=== PATIENT | female | born 1995 | race Caucasian/White ===

== ENCOUNTER 2018-03-02 13:43 | Emergency (ER) | payer OTHER, MEDICAID, SELFPAY ==
--- NOTE | 2018-03-02 13:44 | ED.SOB ---
HPI - SOB/Dyspnea <JERRY Vanegas - Last Filed: 03/02/18 22:05> General Chief Complaint: Shortness of Breath/Dyspnea Stated Complaint: SOB Time Seen by Provider: 03/02/18 13:44 History of Present Illness 22-year-old female here for complaint of having chest pain and feeling of shortness of breath over the past several hours. She said she had the pain that started earlier this morning at about 830. She denies any trauma to the chest area. She denies any fevers or chills. No recent cough. She denies any stressors to the discomfort or the shortness of breath. She does state that she has worked a little more strenuously at work this week. She denies any abdominal pain. No nausea or vomiting. She denies any other concerns or complaints at this time. MD Complaint: chest pain Related Data Previous Rx's Medication Instructions Recorded nitrofurantoin monohyd/m-cryst 100 mg PO Q12H 7 Days cap 03/02/18 Allergies Allergy/AdvReac Type Severity Reaction Status Date / Time hydrogen peroxide Allergy Unknown hives Verified 03/02/18 13:50 [HYDROGEN PEROXIDE] Review of Systems <JERRY Vanegas - Last Filed: 03/02/18 22:05> Constitutional Denies chills, Denies fatigue, Denies fever(s), Denies lethargy and Denies weakness Eyes Denies change in vision, Denies eye discharge, Denies irritation and Denies loss of vision ENT Ears, Nose, Mouth, and Throat: Denies change in voice, Denies neck pain and Denies sore throat Cardiovascular Reports chest pain and Reports dyspnea Respiratory Reports dyspnea Gastrointestinal Gastrointestinal: Denies abdominal pain, Denies change in bowel habits, Denies diarrhea, Denies nausea and Denies vomiting Genitourinary Denies hematuria, Denies flank pain, Denies urinary incontinence and Denies urinary urgency Musculoskeletal Denies neck pain Integumentary/Breasts Denies pruritus, Denies erythema, Denies rash and Denies wounds Neurologic Denies confusion, Denies loss of vision and Denies weakness Psychiatric Denies anxiety, Denies confusion, Denies depression, Denies homicidal ideation and Denies suicidal ideation Endocrine Denies fatigue and Denies flushing Exam <JERRY Vanegas - Last Filed: 03/02/18 22:05> Initial Vital Signs Initial Vital Signs: Vital Signs Temperature 97.8 F 03/02/18 13:50 Pulse Rate 96 H 03/02/18 13:50 Respiratory Rate 16 03/02/18 13:50 Blood Pressure 134/87 H 03/02/18 13:50 Pulse Oximetry 99 03/02/18 13:50 Const General: cooperative and well developed Nutritional Appearance: well nourished Orientation: alert, awake, oriented x3 and not confused HENLA Mouth: oral mucosae normal and moist mucous membranes Eyes Conjunctivae: conjunctivae normal Sclera: sclerae normal Pupils: PERRL EOM: EOM intact bilaterally Chest Chest: normal inspection of the chest Resp Effort & Inspection: normal respiratory effort, able to speak in complete sentences, no respiratory distress and no use of accessory muscles Auscultation: clear to auscultation bilaterally, no rales, no rhonchi and no wheezes Cardio Rate: regular rate Rhythm: regular rhythm Heart Sounds: no click, no gallops, no murmurs and no rubs GI Inspection: non-distended Palpation: soft, no hepatosplenomegaly, No guarding, No pulsatile mass and No tender Auscultation: normal bowel sounds General: CVA tenderness Skin General: no rashes or lesions noted, No jaundice and No petechiae <Anderson Ibarra DO - Last Filed: 03/03/18 08:04> Initial Vital Signs Initial Vital Signs: Vital Signs Temperature 97.8 F 03/02/18 13:50 Pulse Rate 96 H 03/02/18 13:50 Respiratory Rate 16 03/02/18 13:50 Blood Pressure 134/87 H 03/02/18 13:50 Pulse Oximetry 99 03/02/18 13:50 Course <JERRY Vanegas - Last Filed: 03/02/18 22:05> Orders Ordered: Discontinued Medications Sodium Chloride (Normal Saline 0.9%) 1,000 mls @ 1,000 mls/hr IV BOLUS ONE Stop: 03/02/18 16:14 Last Infusion: 03/02/18 16:46 Dose: 0 mls/hr Admin: 03/02/18 15:24 Dose: 1,000 mls/hr Vital Signs - 8 hr 03/02/18 14:34 03/02/18 16:28 03/02/18 17:51 Pulse Rate 77 79 74 Respiratory Rate 16 19 15 Blood Pressure Blood Pressure [Left Arm] 113/79 114/77 115/71 Pulse Oximetry 98 100 99 03/02/18 18:21 Pulse Rate 78 Respiratory Rate 16 Blood Pressure 116/76 Blood Pressure [Left Arm] Pulse Oximetry 100 <Anderson Ibarra DO - Last Filed: 03/03/18 08:04> Orders Ordered: Discontinued Medications Sodium Chloride (Normal Saline 0.9%) 1,000 mls @ 1,000 mls/hr IV BOLUS ONE Stop: 03/02/18 16:14 Last Infusion: 03/02/18 16:46 Dose: 0 mls/hr Admin: 03/02/18 15:24 Dose: 1,000 mls/hr Vital Signs - 8 hr 03/02/18 14:34 03/02/18 16:28 03/02/18 17:51 Pulse Rate 77 79 74 Respiratory Rate 16 19 15 Blood Pressure Blood Pressure [Left Arm] 113/79 114/77 115/71 Pulse Oximetry 98 100 99 03/02/18 18:21 Pulse Rate 78 Respiratory Rate 16 Blood Pressure 116/76 Blood Pressure [Left Arm] Pulse Oximetry 100 MDM - SOB/Dyspnea <JERRY Vanegas - Last Filed: 03/02/18 22:05> Lab Data Result diagrams: 03/02/18 14:31 03/02/18 14:31 Lab Results 03/02/18 03/02/18 03/02/18 Range/Units 14:31 14:31 14:55 WBC 10.3 (4.5-11.0) X10^3/uL RBC 4.52 (4.0-5.2) X10^6/uL Hgb 13.8 (12.0-16.0) g/dL Hct 40.6 (36-46) % MCV 89.8 (80-100) fL MCH 30.4 (26-34) PG MCHC 33.9 (30-36) % RDW 13.5 (11.6-14.8) % Plt Count 251 (150-400) X10^3/uL Neut % (Auto) 58.7 (50-75) % Lymph % (Auto) 32.6 (25-40) % [place] % (Auto) 5.9 (3-14) % Eos % (Auto) 2.0 (2-4) % Baso % (Auto) 0.8 (0-2) % Neut # (Auto) 6100 H (9884-7761) /uL Sodium 142 (137-145) mmol/L Potassium 3.6 (3.4-5.1) mmol/L Chloride 102 (98-107) mmol/L Carbon Dioxide 25 (22-32) mmol/L BUN 13 (7-17) mg/dL Creatinine 0.70 (0.52-1.04) mg/dL Estimated GFR > 60.0 (>60) mL/min BUN/Creatinine Ratio 18.6 (6-22) Glucose 81 (70-100) mg/dL Calcium 9.4 (8.4-10.2) mg/dL Total Bilirubin 0.9 (0.2-1.3) mg/dL AST 26 (14-36) IU/L ALT 28 (9-52) IU/L Alkaline Phosphatase 96 (38-126) U/L Total Creatine Kinase 157 H 127 (30-135) U/L CK-MB (CK-2) 2.18 1.77 (<2.37) ng/mL CK-MB (CK-2) Rel Index 1.4 L 1.4 L (1.5-5.0) % Troponin I < 0.012 < 0.012 (0.01-0.034) ng/mL Total Protein 8.0 (6.3-8.2) g/dL Albumin 4.4 (3.5-5.0) g/dL Globulin 3.6 (1.7-4.1) g/dL Albumin/Globulin Ratio 1.2 (1.0-2.8) Urine Color Urine Appearance Urine pH (4.5-8.0) Ur Specific [place] (1.000-1.035) Urine Protein (Negative) Urine Glucose (UA) (Normal) g/dL Urine Ketones (NEGATIVE) Urine Occult Blood (Negative) Urine Nitrate (Negative) Urine Bilirubin (NEGATIVE) Urine Ictotest (Negative) Urine Urobilinogen (0.2) E.U./dL Ur Leukocyte Esterase (NEGATIVE) Urine RBC (0-5/HPF) Urine WBC (0-5/HPF) Ur Squamous Epith Cells Urine Bacteria (None) Ur Culture Indicated? Micro UA Comment 03/02/18 03/02/18 Range/Units 15:17 15:17 WBC (4.5-11.0) X10^3/uL RBC (4.0-5.2) X10^6/uL Hgb (12.0-16.0) g/dL Hct (36-46) % MCV (80-100) fL MCH (26-34) PG MCHC (30-36) % RDW (11.6-14.8) % Plt Count (150-400) X10^3/uL Neut % (Auto) (50-75) % Lymph % (Auto) (25-40) % [place] % (Auto) (3-14) % Eos % (Auto) (2-4) % Baso % (Auto) (0-2) % Neut # (Auto) (2600-8791) /uL Sodium (137-145) mmol/L Potassium (3.4-5.1) mmol/L Chloride (98-107) mmol/L Carbon Dioxide (22-32) mmol/L BUN (7-17) mg/dL Creatinine (0.52-1.04) mg/dL Estimated GFR (>60) mL/min BUN/Creatinine Ratio (6-22) Glucose (70-100) mg/dL Calcium (8.4-10.2) mg/dL Total Bilirubin (0.2-1.3) mg/dL AST (14-36) IU/L ALT (9-52) IU/L Alkaline Phosphatase (38-126) U/L Total Creatine Kinase (30-135) U/L CK-MB (CK-2) (<2.37) ng/mL CK-MB (CK-2) Rel Index (1.5-5.0) % Troponin I (0.01-0.034) ng/mL Total Protein (6.3-8.2) g/dL Albumin (3.5-5.0) g/dL Globulin (1.7-4.1) g/dL Albumin/Globulin Ratio (1.0-2.8) Urine Color Red Urine Appearance Other Urine pH 6.5 (4.5-8.0) Ur Specific [place] 1.025 (1.000-1.035) Urine Protein 3+ H (Negative) Urine Glucose (UA) Negative (Normal) g/dL Urine Ketones 2+ H (NEGATIVE) Urine Occult Blood 3+ H (Negative) Urine Nitrate Positive H (Negative) Urine Bilirubin 2+ H (NEGATIVE) Urine Ictotest Negative (Negative) Urine Urobilinogen 4.0 H (0.2) E.U./dL Ur Leukocyte Esterase 1+ H (NEGATIVE) Urine RBC >100/hpf H (0-5/HPF) Urine WBC 5-10/hpf H (0-5/HPF) Ur Squamous Epith Cells 0-1 /hpf Urine Bacteria Occasional (0-1) (None) Ur Culture Indicated? Specimen cultured Micro UA Comment Not Reportable Imaging Data Chest x-ray: Radiologist's impression: PROCEDURE: XR CHEST 1V INDICATIONS: Chest pain TECHNIQUE: One view of the chest was acquired. COMPARISON: None. FINDINGS: Surgical changes and devices: None. Lungs and pleura: No pleural effusions or pneumothorax. Lungs are clear. Mediastinum: Mediastinal contours appear normal. Heart size is normal. Bones and chest wall: No suspicious bony lesions. Overlying soft tissues appear unremarkable. IMPRESSION: No acute cardiopulmonary disease. Dictated by: Isaias Msea M.D. on 03/02/2018 at 14:41 Approved by: Isaias Mesa M.D. on 03/02/2018 at 14:43 ECG Data Interpretation: EKG shows normal sinus rhythm with no ST elevation or depression. No ectopy. Ventricular rate of 81. Pr interval of 148. QRS duration is 74. QT of 363 MDM Narrative Medical decision making narrative: EKG shows normal sinus rhythm with no ST elevation or depression. Chest x-ray was obtained was unremarkable. CBC was negative for any acute findings. Chem panel shows CK elevation however negative CK ratio. Troponin was negative. Second set of troponin was also obtained was negative. Urinalysis indicates urinary tract infection. Otherwise laboratory results were unremarkable. Chest pain appears to be muscle skeletal and chest wall related. [id number] Tylenol and Motrin as needed for any discomfort. She is placed on Macrobid. Follow up with primary care provider next week for re-evaluation. For any worsening symptoms return to the emergency room. <Anderson Ibarra, - Last Filed: 03/03/18 08:04> Lab Data Lab Results 03/02/18 03/02/18 03/02/18 Range/Units 14:31 14:31 14:55 WBC 10.3 (4.5-11.0) X10^3/uL RBC 4.52 (4.0-5.2) X10^6/uL Hgb 13.8 (12.0-16.0) g/dL Hct 40.6 (36-46) % MCV 89.8 (80-100) fL MCH 30.4 (26-34) PG MCHC 33.9 (30-36) % RDW 13.5 (11.6-14.8) % Plt Count 251 (150-400) X10^3/uL Neut % (Auto) 58.7 (50-75) % Lymph % (Auto) 32.6 (25-40) % [place] % (Auto) 5.9 (3-14) % Eos % (Auto) 2.0 (2-4) % Baso % (Auto) 0.8 (0-2) % Neut # (Auto) 6100 H (7615-4985) /uL Sodium 142 (137-145) mmol/L Potassium 3.6 (3.4-5.1) mmol/L Chloride 102 (98-107) mmol/L Carbon Dioxide 25 (22-32) mmol/L BUN 13 (7-17) mg/dL Creatinine 0.70 (0.52-1.04) mg/dL Estimated GFR > 60.0 (>60) mL/min BUN/Creatinine Ratio 18.6 (6-22) Glucose 81 (70-100) mg/dL Calcium 9.4 (8.4-10.2) mg/dL Total Bilirubin 0.9 (0.2-1.3) mg/dL AST 26 (14-36) IU/L ALT 28 (9-52) IU/L Alkaline Phosphatase 96 (38-126) U/L Total Creatine Kinase 157 H 127 (30-135) U/L CK-MB (CK-2) 2.18 1.77 (<2.37) ng/mL CK-MB (CK-2) Rel Index 1.4 L 1.4 L (1.5-5.0) % Troponin I < 0.012 < 0.012 (0.01-0.034) ng/mL Total Protein 8.0 (6.3-8.2) g/dL Albumin 4.4 (3.5-5.0) g/dL Globulin 3.6 (1.7-4.1) g/dL Albumin/Globulin Ratio 1.2 (1.0-2.8) Urine Color Urine Appearance Urine pH (4.5-8.0) Ur Specific [place] (1.000-1.035) Urine Protein (Negative) Urine Glucose (UA) (Normal) g/dL Urine Ketones (NEGATIVE) Urine Occult Blood (Negative) Urine Nitrate (Negative) Urine Bilirubin (NEGATIVE) Urine Ictotest (Negative) Urine Urobilinogen (0.2) E.U./dL Ur Leukocyte Esterase (NEGATIVE) Urine RBC (0-5/HPF) Urine WBC (0-5/HPF) Ur Squamous Epith Cells Urine Bacteria (None) Ur Culture Indicated? Micro UA Comment 03/02/18 03/02/18 Range/Units 15:17 15:17 WBC (4.5-11.0) X10^3/uL RBC (4.0-5.2) X10^6/uL Hgb (12.0-16.0) g/dL Hct (36-46) % MCV (80-100) fL MCH (26-34) PG MCHC (30-36) % RDW (11.6-14.8) % Plt Count (150-400) X10^3/uL Neut % (Auto) (50-75) % Lymph % (Auto) (25-40) % [place] % (Auto) (3-14) % Eos % (Auto) (2-4) % Baso % (Auto) (0-2) % Neut # (Auto) (3525-0950) /uL Sodium (137-145) mmol/L Potassium (3.4-5.1) mmol/L Chloride (98-107) mmol/L Carbon Dioxide (22-32) mmol/L BUN (7-17) mg/dL Creatinine (0.52-1.04) mg/dL Estimated GFR (>60) mL/min BUN/Creatinine Ratio (6-22) Glucose (70-100) mg/dL Calcium (8.4-10.2) mg/dL Total Bilirubin (0.2-1.3) mg/dL AST (14-36) IU/L ALT (9-52) IU/L Alkaline Phosphatase (38-126) U/L Total Creatine Kinase (30-135) U/L CK-MB (CK-2) (<2.37) ng/mL CK-MB (CK-2) Rel Index (1.5-5.0) % Troponin I (0.01-0.034) ng/mL Total Protein (6.3-8.2) g/dL Albumin (3.5-5.0) g/dL Globulin (1.7-4.1) g/dL Albumin/Globulin Ratio (1.0-2.8) Urine Color Red Urine Appearance Other Urine pH 6.5 (4.5-8.0) Ur Specific [place] 1.025 (1.000-1.035) Urine Protein 3+ H (Negative) Urine Glucose (UA) Negative (Normal) g/dL Urine Ketones 2+ H (NEGATIVE) Urine Occult Blood 3+ H (Negative) Urine Nitrate Positive H (Negative) Urine Bilirubin 2+ H (NEGATIVE) Urine Ictotest Negative (Negative) Urine Urobilinogen 4.0 H (0.2) E.U./dL Ur Leukocyte Esterase 1+ H (NEGATIVE) Urine RBC >100/hpf H (0-5/HPF) Urine WBC 5-10/hpf H (0-5/HPF) Ur Squamous Epith Cells 0-1 /hpf Urine Bacteria Occasional (0-1) (None) Ur Culture Indicated? Specimen cultured Micro UA Comment Not Reportable Discharge Plan Departure Patient Disposition: Home, Self-Care Clinical Impression: Chest pain, UTI (urinary tract infection) Discharge Date/Time: 03/02/18 18:22 Interventions: ED Discharge Assessment Last Done: 03/02/18 18:21 Instructions: DI for Chest Pain Activity Restrictions/Additional Instructions: 0 blood work was obtained today and was unremarkable. EKG was normal. Chest x-ray was normal. Chest discomfort appears to be chest wall pain. Use [id number] Tylenol or Motrin as needed for any discomfort. Follow up with her primary care provider next week. If continued issues recommend further evaluation such as echo cardiogram and stress test. Urinalysis indicates urinary tract infection you have been placed on antibiotic use as directed. Plenty of fluids and rest. For any worsening symptoms return to the emergency room. Prescriptions: New nitrofurantoin monohyd/m-cryst 100 mg capsule 100 mg PO Q12H 7 Days RF: 0 Referrals: [facility] [Provider Group] <Anderson Ibarra, DO - Last Filed: 03/03/18 08:04> Cosign ED Attending Linda Attestation: I was available for consultation during this patient's emergency department encounter
[2018-03-02 13:50] VITALS: BP 134/87; PULSE 96; RESP 16; TEMP 36.6; O2SAT 99; BMI 32.1
--- NOTE | 2018-03-02 14:16 | DI.RAD.S_ITS ---
PROCEDURE: XR CHEST 1V INDICATIONS: Chest pain TECHNIQUE: One view of the chest was acquired. COMPARISON: None. FINDINGS: Surgical changes and devices: None. Lungs and pleura: No pleural effusions or pneumothorax. Lungs are clear. Mediastinum: Mediastinal contours appear normal. Heart size is normal. Bones and chest wall: No suspicious bony lesions. Overlying soft tissues appear unremarkable. IMPRESSION: No acute cardiopulmonary disease. Dictated by: Isaias Mesa M.D. on 03/02/2018 at 14:41 Approved by: Isaias Mesa M.D. on 03/02/2018 at 14:43
[2018-03-02 14:34] VITALS: BP 113/79; PULSE 77; RESP 16; O2SAT 98
[2018-03-02 14:38] LABS: Add Manual Diff / Slide Review NO; Basophils Percent Auto 0.8 % (0-2); Hematocrit 40.6 % (36-46); Hemoglobin 13.8 g/dL (12.0-16.0); Lymphocytes Percent Auto 32.6 % (25-40); Mean Corpuscular HGB Conc 33.9 % (30-36); Mean Corpuscular Hemoglobin 30.4 PG (26-34); Mean Corpuscular Volume 89.8 fL (80-100); Monocytes Percent Auto 5.9 % (3-14); Neutrophils Absolute Auto 6100 /uL (3000-5900); Neutrophils Percent Auto 58.7 % (50-75); Platelet Count 251 X10^3/uL (150-400); Red Blood Cell Count 4.52 X10^6/uL (4.0-5.2); Red Cell Distribution Width 13.5 % (11.6-14.8); White Blood Cell Count 10.3 X10^3/uL (4.5-11.0)
[2018-03-02 14:50] LABS: Alanine Aminotransferase 28 IU/L (9-52); Albumin 4.4 g/dL (3.5-5.0); Albumin Globulin Ratio 1.2 (1.0-2.8); Alkaline Phosphatase 96 U/L (38-126); Aspartate Aminotransferase 26 IU/L (14-36); BUN Creatinine Ratio 18.6 (6-22); Bilirubin Total 0.9 mg/dL (0.2-1.3); Blood Urea Nitrogen 13 mg/dL (7-17); Calcium 9.4 mg/dL (8.4-10.2); Carbon Dioxide 25 mmol/L (22-32); Chloride 102 mmol/L (98-107); Creatine Kinase 157 U/L (30-135); Estimated Glomerular Filt Rate > 60.0 mL/min (>60); Globulin 3.6 g/dL (1.7-4.1); Glucose 81 mg/dL (70-100); HEMOLYSIS < 15 (0-50); Potassium 3.6 mmol/L (3.4-5.1); Sodium 142 mmol/L (137-145)
[2018-03-02 15:04] LABS: Troponin I < 0.012 ng/mL (0.01-0.034)
[2018-03-02 15:07] LABS: CKMB % Relative Index 1.4 % (1.5-5.0); Creatine Kinase MB 2.18 ng/mL (<2.37)
[2018-03-02] MEDS: SODIUM CHLORIDE 0.9% 1,000 ML 1000 ML IV (15:24)
[2018-03-02 15:36] LABS: Bilirubin Urine UA 2+ (NEGATIVE); Color Urine UA RED; Glucose Urine UA NEGATIVE (Normal); Ketones Urine UA 2+ (NEGATIVE); Leukocyte Esterase Urine UA 1+ (NEGATIVE); Nitrite Urine UA POSITIVE (Negative); Occult Blood Urine UA 3+ (Negative); Protein Urine UA 3+ (Negative); Specific Gravity Urine UA 1.025 (1.000-1.035); pH Urine UA 6.5 (4.5-8.0)
[2018-03-02 15:49] LABS: Appearance Urine UA OTHER; RBC Urine >100/HPF (0-5/HPF); WBC Urine 5-10/HPF (0-5/HPF)
[2018-03-02 15:50] LABS: Bacteria Urine Occasional (0-1); Culture Indicated Urine Specimen Cultured; Squamous Epithelial Cell Urine 0-1 /HPF
[2018-03-02 15:53] LABS: Ictotest Urine Negative (Negative)
[2018-03-02 16:28] VITALS: BP 114/77; PULSE 79; RESP 19; O2SAT 100
[2018-03-02 17:12] LABS: Creatine Kinase 127 U/L (30-135)
[2018-03-02 17:27] LABS: CKMB % Relative Index 1.4 % (1.5-5.0); Creatine Kinase MB 1.77 ng/mL (<2.37)
[2018-03-02 17:31] LABS: Troponin I < 0.012 ng/mL (0.01-0.034)
[2018-03-02 17:51] VITALS: BP 115/71; PULSE 74; RESP 15; O2SAT 99
[2018-03-02 18:21] VITALS: BP 116/76; PULSE 78; RESP 16; O2SAT 100
== END 2018-03-02 18:22 | disposition home or self-care (01) ==
PROVIDERS: Emergency Provider Nurse Practitioner Family
DX: N39.0 Urinary tract infection, site not specified (principal); R07.9 Chest pain, unspecified
CPT/HCPCS: 36591; 71045; 80053; 81001; 81025; 82550; 82553; 84484; 85025; 87086; 93005; 93010; 96360; 99283; 99285

== ENCOUNTER 2018-03-04 14:09 | Emergency (ER) | payer OTHER, MEDICAID, SELFPAY ==
[2018-03-04 14:19] VITALS: BP 117/81; PULSE 70; RESP 16; TEMP 36.4; O2SAT 99; BMI 32.1
[2018-03-04 14:36] LABS: Bacteria Urine None Seen
[2018-03-04 14:48] LABS: Bilirubin Urine UA NEGATIVE (NEGATIVE); Glucose Urine UA NEGATIVE (Normal); Ketones Urine UA TRACE (NEGATIVE); Leukocyte Esterase Urine UA NEGATIVE (NEGATIVE); Nitrite Urine UA Negative (Negative); Occult Blood Urine UA 3+ (Negative); Protein Urine UA 2+ (Negative); Specific Gravity Urine UA >=1.030 (1.000-1.035); Urobilinogen Urine UA 0.2 E.U./dL (0.2); pH Urine UA 5.5 (4.5-8.0)
[2018-03-04 14:50] LABS: Appearance Urine UA Cloudy; Color Urine UA Red; RBC Urine >100/HPF (0-5/HPF); WBC Urine 5-10/HPF (0-5/HPF)
[2018-03-04 14:51] LABS: Culture Indicated Urine Specimen Cultured
--- NOTE | 2018-03-04 16:29 | PC.NURSE ---
Patient incidently states that she stood up when showering and slammed the right side of her back into the tap just prior to the UTI symptoms started
[2018-03-04 16:49] VITALS: BP 127/85; PULSE 57; RESP 16; TEMP 36.4; O2SAT 99
--- NOTE | 2018-03-04 16:52 | ED_ITS ---
HPI - Female Genitourinary <Arcelia Avitia PA-C - Last Filed: 03/04/18 22:03> General Chief complaint: Urogenital-Female Stated complaint: SHARP ABD AND BACK PAIN RT SIDE Time Seen by Provider: 03/04/18 16:45 Source: patient Mode of arrival: ambulatory Limitations: no limitations History of Present Illness HPI Narrative: This 22-year-old female returns today due to right lower back and flank pain along with hematuria. She states that she has a very physical job and also hit her low back on the right side on a faucet on and has had pain since then. She states that that pain seems to be worse with movement and she thought it was just sore muscles. It was going on when she was seen here on Monday for dyspnea. She states that today however, she has had worsening flank pain and noticed gross blood in her urine. She states that she has chronic frequency and urgency, and has not noted any changes there. She has not had dysuria. She has had chills and sweats today but no fever. She has had nausea today but tolerating fluids without problem. She does note some decreased appetite. She has not had vomiting. She denies any other new trauma. She denies any rash. No history of kidney stones. She has an IUD in place and states she has a little bit of spotting and discharge but nothing acutely changed and no STD concerns. She states that yesterday the pain was more like period cramps and today it is more constant but worse at times she states that she does not have any new chest discomfort or dyspnea today and does not feel like there are any acute changes aside from the hematuria and worsening pain in her side. She does note some chronic intermittent back pain which she relates to having a very physical job as well as a 1-year-old. She states that they really do not seem to be any exacerbating or alleviating features for pain aside from perhaps movement. She had a negative test here 2 days ago Related Data Previous Rx's Medication Instructions Recorded nitrofurantoin monohyd/m-cryst 100 mg PO Q12H 7 Days cap 03/02/18 ibuprofen 800 mg PO TID PRN #20 tab 03/04/18 levofloxacin [Levaquin] 500 mg PO DAILY 7 Days tab 03/04/18 Allergies Allergy/AdvReac Type Severity Reaction Status Date / Time hydrogen peroxide Allergy Unknown hives Verified 03/02/18 13:50 [HYDROGEN PEROXIDE] Review of Systems <Arcelia Avitia PA-C - Last Filed: 03/04/18 22:03> Review of Systems All systems reviewed & are unremarkable except as noted in HPI and below Exam <Arcelia Avitia PA-C - Last Filed: 03/04/18 22:03> Narrative Exam Narrative: GENERAL APPEARANCE: Patient sitting comfortably, in no distress. LUNGS: Clear to auscultation bilaterally. HEART: Rate and rhythm regular without murmur, normal S1 and S2, no S3 or S4. ABDOMEN: Soft, NT, ND, +BS x 4 quadrants. Minimal right CVAT, none on the left. No palpable masses MUSCULOSKELETAL: No tenderness over the lumbosacral spine. She has mild tenderness over the right inferior lumbar musculature at the lateral scapular line area. She has normal trunk range of motion but is able to elicit some tenderness with trunk rotation DERM: No exanthem Initial Vital Signs Initial Vital Signs: Vital Signs Temperature 97.5 F L 03/04/18 14:19 Pulse Rate 70 03/04/18 14:19 Respiratory Rate 16 03/04/18 14:19 Blood Pressure 117/81 H 03/04/18 14:19 Pulse Oximetry 99 03/04/18 14:19 <Anderson Ibarra DO - Last Filed: 03/06/18 07:16> Initial Vital Signs Initial Vital Signs: Vital Signs Temperature 97.5 F L 03/04/18 14:19 Pulse Rate 70 03/04/18 14:19 Respiratory Rate 16 03/04/18 14:19 Blood Pressure 117/81 H 03/04/18 14:19 Pulse Oximetry 99 03/04/18 14:19 Course <ALIZE Carver Last Filed: 03/04/18 22:03> Hospital Course: Patient has improved after Zofran during her stay here. She was sleeping comfortably. She tolerated food and fluids without problem. We discussed that there may be a kidney infection here but she also has a component of musculoskeletal pain due to chronic back strain and the contusion that she had a few days ago, and she agrees with this. She was given a dose of antibiotic tonight, along with Zofran and ibuprofen to take home, and agrees to follow up with her PCP in 2-3 days for recheck. Explained the importance of this as culture should be back by then Orders Ordered: Discontinued Medications Ibuprofen (Ibuprofen 800mg Prepack) 1 bottle MISC SEEINSTR ONE Stop: 03/04/18 18:56 Last Admin: 03/04/18 19:21 Dose: 1 bottle Levofloxacin (Levaquin) 500 mg PO NOW ONE Stop: 03/04/18 17:08 Last Admin: 03/04/18 17:28 Dose: 500 mg Ondansetron HCl (Zofran Odt) 4 mg PO NOW ONE Stop: 03/04/18 17:08 Last Admin: 03/04/18 17:28 Dose: 4 mg Ondansetron HCl (Zofran Odt Prepack) 1 bottle MISC SEEINSTR ONE Stop: 03/04/18 18:56 Last Admin: 03/04/18 19:21 Dose: 1 bottle Vital Signs - 8 hr 03/04/18 14:19 03/04/18 16:49 03/04/18 18:17 Temperature 97.5 F L 97.6 F 97.6 F Pulse Rate 70 57 L 95 H Respiratory Rate 16 16 16 Blood Pressure 117/81 H Blood Pressure [Left Arm] 127/85 H 121/80 H Pulse Oximetry 99 99 99 <Anderson Ibarra, - Last Filed: 03/06/18 07:16> Orders Ordered: Discontinued Medications Ibuprofen (Ibuprofen 800mg Prepack) 1 bottle MISC SEEINSTR ONE Stop: 03/04/18 18:56 Last Admin: 03/04/18 19:21 Dose: 1 bottle Levofloxacin (Levaquin) 500 mg PO NOW ONE Stop: 03/04/18 17:08 Last Admin: 03/04/18 17:28 Dose: 500 mg Ondansetron HCl (Zofran Odt) 4 mg PO NOW ONE Stop: 03/04/18 17:08 Last Admin: 03/04/18 17:28 Dose: 4 mg Ondansetron HCl (Zofran Odt Prepack) 1 bottle MISC SEEINSTR ONE Stop: 03/04/18 18:56 Last Admin: 03/04/18 19:21 Dose: 1 bottle Vital Signs - 8 hr 03/04/18 14:19 03/04/18 16:49 03/04/18 18:17 Temperature 97.5 F L 97.6 F 97.6 F Pulse Rate 70 57 L 95 H Respiratory Rate 16 16 16 Blood Pressure 117/81 H Blood Pressure [Left Arm] 127/85 H 121/80 H Pulse Oximetry 99 99 99 MDM - Female Genitourinary <Arcelia Avitia PA-C - Last Filed: 03/04/18 22:03> Lab Data Lab Results 03/04/18 Range/Units 14:28 Urine Color Red Urine Appearance Cloudy Urine pH 5.5 (4.5-8.0) Ur Specific [place] >=1.030 H (1.000-1.035) Urine Protein 2+ H (Negative) Urine Glucose (UA) Negative (Normal) g/dL Urine Ketones Trace H (NEGATIVE) Urine Occult Blood 3+ H (Negative) Urine Nitrate Negative (Negative) Urine Bilirubin Negative (NEGATIVE) Urine Urobilinogen 0.2 (0.2) E.U./dL Ur Leukocyte Esterase Negative (NEGATIVE) Urine RBC >100/hpf H (0-5/HPF) Urine WBC 5-10/hpf H (0-5/HPF) Urine Bacteria None seen (None) Ur Culture Indicated? Specimen cultured Micro UA Comment <Anderson Ibarra DO - Last Filed: 03/06/18 07:16> Lab Data Lab Results 03/04/18 Range/Units 14:28 Urine Color Red Urine Appearance Cloudy Urine pH 5.5 (4.5-8.0) Ur Specific [place] >=1.030 H (1.000-1.035) Urine Protein 2+ H (Negative) Urine Glucose (UA) Negative (Normal) g/dL Urine Ketones Trace H (NEGATIVE) Urine Occult Blood 3+ H (Negative) Urine Nitrate Negative (Negative) Urine Bilirubin Negative (NEGATIVE) Urine Urobilinogen 0.2 (0.2) E.U./dL Ur Leukocyte Esterase Negative (NEGATIVE) Urine RBC >100/hpf H (0-5/HPF) Urine WBC 5-10/hpf H (0-5/HPF) Urine Bacteria None seen (None) Ur Culture Indicated? Specimen cultured Micro UA Comment Discharge Plan Departure Patient Disposition: Home, Self-Care Clinical Impression: Pyelonephritis, Lumbar strain Discharge Date/Time: 03/04/18 19:30 Interventions: ED Discharge Assessment Last Done: 03/04/18 19:29 Instructions: DI for Kidney Infection Activity Restrictions/Additional Instructions: You should return if you have any acutely worsening symptoms. Otherwise, you can take the anti nausea medicine as you needed to night, and also I have given you 800 mg ibuprofen to start every 8 hr for pain and inflammation. You can greens picker prescriptions at the pharmacy tomorrow as you do not need your 2nd dose of antibiotic until tomorrow afternoon or early evening. As we talked about, you may have a kidney infection causing the blood in your urine, but this is not clear until the cultures are returned, so we are treating you. You should follow up with your PCP in 2-3 days for recheck. Part of your pain also seems to be caused by hitting your low back on the faucet as well as some chronic strain. Prescriptions: New ibuprofen 800 mg tablet 800 mg PO TID PRN (Reason: pain) Qty: 20 RF: 0 levofloxacin [Levaquin] 500 mg tablet 500 mg PO DAILY 7 Days RF: 0 No Action nitrofurantoin monohyd/m-cryst 100 mg capsule 100 mg PO Q12H 7 Days RF: 0 Referrals: Renée Sánchez MD [Non-Staff] - <Anderson Ibarra DO - Last Filed: 03/06/18 07:16> Cosign ED Attending Cosihsanature Attestation: I was available for consultation during this patient's emergency department encounter
[2018-03-04] MEDS: levoFLOXacin 500 MG TABLET PO (17:28)
[2018-03-04] MEDS: ONDANSETRON 4 MG ODT PO (17:28)
[2018-03-04 18:17] VITALS: BP 121/80; PULSE 95; RESP 16; TEMP 36.4; O2SAT 99
[2018-03-04] MEDS: ONDANSETRON 4 MG ODT PREPACK 1 BOTTLE MISC (19:21)
[2018-03-04] MEDS: IBUPROFEN 800MG PREPACK 1 BOTTLE MISC (19:21)
== END 2018-03-04 19:30 | disposition home or self-care (01) ==
PROVIDERS: Emergency Medicine; Emergency Provider Internal Medicine
DX: N12 Tubulo-interstitial nephritis, not specified as acute or chronic (principal); S39.012A Strain of muscle, fascia and tendon of lower back, initial encounter; W22.8XXA Striking against or struck by other objects, initial encounter
CPT/HCPCS: 81001; 87077; 87086; 99282; 99283

== ENCOUNTER 2018-11-20 20:32 | Emergency (ER) | payer SELFPAY ==
[2018-11-20 20:40] VITALS: BP 133/95; PULSE 84; RESP 15; TEMP 37; O2SAT 99; BMI 27.4
--- NOTE | 2018-11-20 20:43 | DI.RAD.S_ITS ---
PROCEDURE: XR KNEE RT 3V INDICATIONS: right knee pain TECHNIQUE: 3 views of the knee were acquired. COMPARISON: None. FINDINGS: Bones: No fractures or dislocations. No suspicious bony lesions. Soft tissues: No joint effusion. No suspicious soft tissue calcifications. IMPRESSION: No acute fracture. No osseous lesion. If clinical suspicion and/or symptoms persist, further assessment with repeat plainfilms, or advanced imaging (e.g., CT, MRI, or bone scan) may be helpful for further assessment. Dictated by: Christiano Barry M.D. on 11/20/2018 at 21:16 Approved by: Christiano Barry M.D. on 11/20/2018 at 21:16
--- NOTE | 2018-11-20 23:35 | PC.NURSE ---
Patient called in lobby to come back to room. Was seen exiting by admitting staff, no longer in lobby and not outside.
--- NOTE | 2018-11-20 23:56 | PC.NURSE ---
Patient came up to admitting and asked Did they call my name while I was in the bathroom? We undid the discharge and placed patient in room.
--- NOTE | 2018-11-20 23:58 | PC.NURSE ---
Chronic right knee pain for 2 years
[2018-11-21 00:10] VITALS: BP 131/79; PULSE 76; RESP 16; O2SAT 99
[2018-11-21 01:22] VITALS: BP 130/72; PULSE 72; RESP 16; O2SAT 99
--- NOTE | 2018-11-21 07:02 | ED_ITS ---
HPI - Extremity Injury (Lower) General Chief Complaint: Extremity Injury, Lower Stated Complaint: RT KNEE PAIN Time Seen by Provider: 11/20/18 23:08 Source: patient Mode of arrival: ambulatory Limitations: no limitations History of Present Illness HPI Narrative: 23F nonsmoker otherwise healthy presents with on going R knee pain in the absence of any injury. She's had problems with her knee for quite some time and thinks perhaps it was due to sitting cross legged for so long. She states her pain is worse with motion and improves with rest. She denies any significant swelling. MD complaint: knee injury Place: home Severity: moderate Relieving factors: nothing Exacerbating factors: weight bearing and movement Associated symptoms: able to partially bear weight Other symptoms: none Related Data Previous Rx's Medication Instructions Recorded ibuprofen 800 mg PO TID PRN #20 tab 03/04/18 ketorolac 10 mg PO Q6H PRN #14 tab 11/21/18 Allergies Allergy/AdvReac Type Severity Reaction Status Date / Time hydrogen peroxide Allergy Unknown hives Verified 11/20/18 20:40 [HYDROGEN PEROXIDE] Review of Systems Constitutional Denies chills, Denies fever(s), Denies lethargy and Denies weakness Eyes Denies change in vision, Denies eye discharge, Denies irritation and Denies loss of vision ENT Ears, Nose, Mouth, and Throat: Denies change in voice, Denies neck pain and Denies sore throat Cardiovascular Denies chest pain, Denies irregular heart rhythm, Denies lightheadedness, Denies palpitations, Denies dyspnea, Denies dyspnea on exertion and Denies orthopnea Respiratory Denies cough, Denies dyspnea, Denies dyspnea on exertion and Denies wheezing Gastrointestinal Gastrointestinal: Denies abdominal pain, Denies change in bowel habits, Denies diarrhea, Denies nausea and Denies vomiting Genitourinary Denies hematuria, Denies flank pain, Denies urinary incontinence and Denies urinary urgency Musculoskeletal Reports limited range of motion and Denies neck pain Integumentary/Breasts Denies pruritus, Denies erythema, Denies rash and Denies wounds Neurologic Denies confusion, Denies loss of vision and Denies weakness Psychiatric Denies anxiety, Denies confusion, Denies depression, Denies homicidal ideation and Denies suicidal ideation Endocrine Denies palpitations Hematologic/Lymphatic Denies easy bruising Allergic/Immunologic Denies wheezing [facility] Medical History Healthy female (Chronic) H/O wisdom tooth extraction (Resolved) Social History Smoking Status: Current every day smoker substance use type: marijuana Social History Smoking Status: Current every day smoker substance use type: marijuana Exam Narrative Exam Narrative: GEN: AOx3 and in mild distress EYES: Pupils are equal, round, and reactive to light and accommodation. Extraoccular muscles are intact bilaterally. There is no subconjunctival hemorrhage or exudate. CHEST: Lungs are clear to auscultation bilaterally and free of wheezes, rales, or rhonchi. Heart rate is regular rhythm, there are no murmurs, clicks, rubs, or gallops. There is no chest wall tenderness. ABD: Abdomen is soft and nontender. There is no guarding or rebound. Bowel sounds are normal in all 4 quadrants. There is no mass or organomegaly. EXT: Full painless ROM of all extremities with no loss of sensation or strength. No erythema or edema. No ligamentous instability. No effusion SKIN: Warm, pink, and dry. No erythema or rash Initial Vital Signs Initial Vital Signs: Vital Signs Temperature 98.6 F 11/20/18 20:40 Pulse Rate 84 11/20/18 20:40 Respiratory Rate 15 11/20/18 20:40 Blood Pressure 133/95 H 11/20/18 20:40 Pulse Oximetry 99 11/20/18 20:40 Course Orders Ordered: ED Orders 11/20/18 20:43 XR knee RT 3V Stat Vital Signs - 8 hr 11/21/18 00:10 11/21/18 01:22 Pulse Rate 76 72 Respiratory Rate 16 16 Blood Pressure 130/72 Blood Pressure [Right Arm] 131/79 Pulse Oximetry 99 99 MDM - Extremity Injury (Lower) Imaging Data Knee Xray: Attestation: I personally reviewed and interpreted this imaging study as follows: My impression: NAP Discharge Plan Departure Patient Disposition: Home Clinical Impression: Acute internal derangement of knee Qualifiers: Laterality: right Qualified Code(s): M23.91 - Unspecified internal derangement of right knee Discharge Date/Time: 11/21/18 01:22 Interventions: ED Discharge Assessment Last Done: 11/21/18 01:22 Instructions: DI for Knee Pain Activity Restrictions/Additional Instructions: *You have been diagnosed with [ acute on chronic Right knee pain ] *What to do: *Take medications as directed *Follow up with your primary care provider in 2-3 days, call for an appointment. Let them know you were seen in the Emergency Department and that we ask that you be seen in follow up *Return to ER if you should have any new, worsening or concerning symptoms Prescriptions: New ketorolac 10 mg tablet 10 mg PO Q6H PRN (Reason: pain) Qty: 14 RF: 0 No Action ibuprofen 800 mg tablet 800 mg PO TID PRN (Reason: pain) Qty: 20 RF: 0 Stand Alone Forms: Work Release Note
== END 2018-11-21 01:22 | disposition home or self-care (01) ==
PROVIDERS: Emergency Provider Emergency Medicine
DX: M23.91 Unspecified internal derangement of right knee (principal)
CPT/HCPCS: 73562; 99282; 99284

== ENCOUNTER → 2019-04-29 18:37 | Outpatient (CLI) | payer OTHER, MEDICAID, SELFPAY ==
--- NOTE | 2019-04-29 18:40 | DI.RAD.S_ITS ---
PROCEDURE: XR LUMBAR SPINE 2-3V INDICATIONS: midline low back pain lower throacic/upper lumbar TECHNIQUE: 3 views of the lumbar spine were acquired. COMPARISON: None. FINDINGS: Bones: Transitional anatomy with 6 [id number] vertebrae are present. There is normal bony alignment. No vertebral body compression fractures. No suspicious bony lesions. Soft tissues: Overlying bowel gas pattern is normal. No suspicious soft tissue calcifications. Intrauterine device projects over the mid pelvis IMPRESSION: No fracture. No acute osseous lesion. If symptoms and/or clinical suspicion for pathology persists, evaluation with MRI may be helpful for further assessment. Dictated by: Lia Campbell MD, PhD on 04/29/2019 at 19:26 Approved by: Lia Campbell MD, PhD on 04/29/2019 at 19:27
--- NOTE | 2019-04-29 18:40 | DI.RAD.S_ITS ---
PROCEDURE: XR THORACIC SPINE 3V INDICATIONS: midline low back pain lower throacic/upper lumbar TECHNIQUE: 3 views of the thoracic spine were acquired. COMPARISON: None. FINDINGS: Bones: No fractures or dislocations. No suspicious bony lesions. 12 pairs of ribs are noted, and appear intact where visualized. Soft tissues: No paravertebral stripe thickening. IMPRESSION: No fracture. No acute osseous lesion. If symptoms and/or clinical suspicion for pathology persists, evaluation with MRI may be helpful for further assessment. Dictated by: Lia Campbell MD, PhD on 04/29/2019 at 19:25 Approved by: Lia Campbell MD, PhD on 04/29/2019 at 19:26
== END ==
PROVIDERS: Visit Provider Physician Assistant
DX: M54.5 Low back pain (principal); M54.6 Pain in thoracic spine
CPT/HCPCS: 72072; 72100

== ENCOUNTER 2019-11-29 22:44 | Emergency (ER) | payer OTHER, MEDICAID, SELFPAY ==
[2019-11-29 22:54] VITALS: BP 182/104; PULSE 100; RESP 19; TEMP 36.4; O2SAT 98; BMI 40.3
--- NOTE | 2019-11-29 23:05 | DI.RAD.S_ITS ---
PROCEDURE: XR RIBS RT MIN 3V W CXR 1V INDICATIONS: felt pop on right after coughing with pain. TECHNIQUE: 3 views of the right ribs were acquired, along with a single view chest. COMPARISON: [facility], , XR CHEST 1V, 03/02/2018, 14:20. FINDINGS: Surgical changes and devices: None. Bones and chest wall: No displaced right rib fractures or dislocations. No suspicious bony lesions. Overlying soft tissues appear unremarkable. Lungs and pleura: No pleural effusions or pneumothorax. Lungs appear clear. Mediastinum: Mediastinal contours appear normal. Heart size is normal. IMPRESSION: No displaced rib fractures are appreciated. Dictated by: Johnny Velázquez M.D. on 11/30/2019 at 9:29 Approved by: Johnny Velázquez M.D. on 11/30/2019 at 9:30
[2019-11-30 00:15] VITALS: BP 114/70; PULSE 81; RESP 15; O2SAT 98
[2019-11-30] MEDS: CYCLOBENZAPRINE 10 MG TABLET PO (00:44)
[2019-11-30] MEDS: KETOROLAC 60 MG/2 ML VIAL 30 MG IM (00:44)
[2019-11-30 01:00] VITALS: BP 127/85; PULSE 84; O2SAT 97
--- NOTE | 2019-11-30 01:08 | ED_ITS ---
HPI - Back Pain/Injury General Chief Complaint: Back Pain/Injury Stated Complaint: HURT RIGHT SIDE Time Seen by Provider: 11/30/19 00:29 Source: patient Limitations: no limitations History of Present Illness HPI Narrative: HPI: The patient is a 24-year-old female states that she has had a cough for the past week prior to admission. She states that she was coughing today she felt something pop in her right anterior lower ribs and developed pain and discomfort in that area. She denies any other fall or injury. She denies sudden increased shortness of breath. She has had no palpitations or irregular heartbeat. She denied any significant shortness of breath. Her chest pain was sharp and uncomfortable. She has had a cough that has been dry and nonproductive of any sputum. She denies any headache. She has had no significant abdominal pain nausea vomiting diarrhea. She has had no urinary symptoms. She denies a history of diabetes mellitus myocardial infarction or asthma. She smokes cigarettes and has a smoker's cough. She drinks alcohol and occasionally smokes marijuana. Related Data Previous Rx's Medication Instructions Recorded ibuprofen 800 mg PO TID PRN #20 tab 03/04/18 cyclobenzaprine 10 mg PO TID PRN #15 tab 11/30/19 naproxen [Naprosyn] 500 mg PO BID PRN #14 tab 11/30/19 Allergies Allergy/AdvReac Type Severity Reaction Status Date / Time hydrogen peroxide Allergy Unknown hives Verified 04/29/19 18:04 [HYDROGEN PEROXIDE] Review of Systems Review of Systems Narrative: Her review of systems were negative except for those mentioned in the history of present illness. Patient History Medical History Healthy female (Chronic) Surgical History H/O wisdom tooth extraction (Resolved) Social History Smoking Status: Current every day smoker substance use type: marijuana Smoking Status: Current every day smoker tobacco type: cigarettes and vaping alcohol intake frequency: a few times a week Alcohol type: hard liquor Substance Use Type: marijuana Exam Narrative Exam Narrative: PHYSICAL EXAM: CONSTITUTIONAL: Awake, Alert, Oriented, Coherent, Cooperative in NAD. Does not appear toxic or ill. HEAD: AT/NC EENT: PERRL, FROM of eyes, no discharge, No epistaxis or nasal drainage Oral mucosa is moist and pink, posterior pharynx is without erythema or exudate. NECK: Supple, no obvious JVD, Trachea is midline without stridor, SPINE: No gross deformity, no palpable tenderness of the cervical, thoracic, lumbar or sacral spine. No CVA tenderness. THORAX: Right lower chest is tender to palpation anterior without crepitus or subcutaneous air.. LUNGS: Clear with symmetrical breath sounds without respiratory distress HEART: Normal heart tones, regular rhythm and rate without murmur. ABDOMEN: Soft, non-tender, EXTREMITIES: No edema, cyanosis, deformity or tenderness. SKIN: No rash, bruising, petechiae or purpura. NEURO: Awake, alert, oriented, conversive, cranial nerves II-XII are symmetrical and normal, moves all 4 extremities and is ambulatory Initial Vital Signs Initial Vital Signs: Vital Signs Temperature 97.6 F 11/29/19 22:54 Pulse Rate 100 H 11/29/19 22:54 Respiratory Rate 19 11/29/19 22:54 Blood Pressure 182/104 H 11/29/19 22:54 Pulse Oximetry 98 11/29/19 22:54 Course Course Course Narrative: 0108 reviewed with the patient's rib x-rays myself did not reveal any acute fracture or pathology. I did not appreciate any acute pneumothorax and a chest x-ray. The chest x-ray are is within normal limits except for 2 circular ring artifacts on the x-ray. The patient will be discharged home. Orders Ordered: ED Orders 11/29/19 23:05 XR ribs RT min 3V w CXR1V Stat Discontinued Medications Cyclobenzaprine HCl (Flexeril) 10 mg PO NOW ONE Stop: 11/30/19 00:35 Last Admin: 11/30/19 00:44 Dose: 10 mg Documented by: RALPH Ketorolac Tromethamine (Toradol) 30 mg IM NOW ONE Stop: 11/30/19 00:35 Last Admin: 11/30/19 00:44 Dose: 30 mg Documented by: RALPH Vital Signs Vital signs: Vital Signs - 8 hr 11/29/19 22:54 11/30/19 00:15 11/30/19 01:00 Temperature 97.6 F Pulse Rate 100 H 81 84 Respiratory Rate 19 15 Blood Pressure 182/104 H Blood Pressure [Left Arm] 114/70 127/85 Pulse Oximetry 98 98 97 Discharge Plan Departure Patient Disposition: Home Clinical Impression: Rib pain on right side, Right-sided chest wall pain Discharge Date/Time: 11/30/19 01:35 Instructions: DI for Atypical Chest Pain, DI for Costochondritis Activity Restrictions/Additional Instructions: 1. Follow-up with your family physician in and be rechecked in 48-72 hours. 2. The radiologist did not see any rib fractures. 3, take cyclobenzaprine 10 mg for muscle spasms pain and discomfort. 4. For pain and discomfort take Naprosyn 500 mg twice a day with your meals 14. 5. If you develop worsening pain or discomfort dizziness passing out or worsening shortness of breath you need to be re-evaluated in proceed to the nearest emergency department. Prescriptions: New naproxen [Naprosyn] 500 mg tablet 500 mg PO BID PRN (Reason: pain) Qty: 14 RF: 0 cyclobenzaprine 10 mg tablet 10 mg PO TID PRN (Reason: muscle spasm) Qty: 15 RF: 0 No Action ibuprofen 800 mg tablet 800 mg PO TID PRN (Reason: pain) Qty: 20 RF: 0 ED Sign-out Cosign ED Attending Cosignature Attestation: I was immediately available in the depart ment for consultation. This documentation has been reviewed and I agree with assessment and plan. Supervised by Chad Schmidt MD
== END 2019-11-30 01:35 | disposition home or self-care (01) ==
PROVIDERS: Emergency Provider Emergency Medicine
DX: R07.81 Pleurodynia (principal); R07.89 Other chest pain; R05 Cough
CPT/HCPCS: 36415; 71101; 96372; 99283; 99284; J1885

== ENCOUNTER 2019-12-30 15:23 | Emergency (ER) | payer OTHER, MEDICAID, SELFPAY ==
[2019-12-30 15:29] VITALS: BP 142/89; PULSE 82; RESP 18; TEMP 36.2; O2SAT 99
--- NOTE | 2019-12-30 22:20 | ED_ITS ---
HPI - Back Pain/Injury <JERRY Leahy - Last Filed: 12/30/19 22:36> General Chief Complaint: Upper Respiratory Symptoms Stated Complaint: Costocondritis, Painful Breathing Time Seen by Provider: 12/30/19 15:29 Source: patient Mode of arrival: Ambulatory Limitations: no limitations History of Present Illness HPI Narrative: This is a 24 year female, smoker, presents to ED with chief complain of right lateral rib pain which radiating to the anterior chest and posterior back for wound. Patient denies chest pain, breathing difficulty, nausea /vomiting, diaphoresis or trauma/falls. Patient reports was evaluated and diagnosed with costochondritis in 11/30/19 and discharged to home with Flexeril and Naprosyn which improved her symptoms. 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 Patient denies productive cough, fever, rash on chest/back and reports the pain is exactly at the same location, characteristic but worsening in severity. Patient had x-ray test done during last visit which showed negative findings. Patient reports had use last ibuprofen 2 days ago. Related Data Previous Rx's Medication Instructions Recorded ibuprofen 800 mg PO TID PRN #20 tab 03/04/18 cyclobenzaprine 10 mg PO TID PRN #15 tab 11/30/19 naproxen [Naprosyn] 500 mg PO BID PRN #14 tab 11/30/19 cyclobenzaprine 10 mg PO TID PRN #15 tab 12/30/19 naproxen 500 mg PO BID PRN #14 tab 12/30/19 Allergies Allergy/AdvReac Type Severity Reaction Status Date / Time hydrogen peroxide Allergy Unknown hives Verified 04/29/19 18:04 [HYDROGEN PEROXIDE] Review of Systems <JERRY Leahy - Last Filed: 12/30/19 22:36> Review of Systems Narrative: General: Denies fever, chills, fatigue, malaise, sweats. HEENT: Denies sinus pain, ear pain, sore throat, difficulty swallowing, dizziness. Respiratory: Denies dyspnea, cough, wheezing, hemoptysis, sputum. Cardiovascular: Denies chest pain, palpitations, orthopnea, edema. Gastrointestinal: Denies nausea, vomiting, abdominal pain, diarrhea, constipation, melena. : Denies dysuria, frequency, incontinence, hematuria, urinary retention. Musculoskeletal: See HPI Skin: Denies rash, skin lesions, or other. Neurologic: Denies weakness, headache, numbness, change in speech, confusion, seizures, incoordination. Psychiatric: No concerning psychosocial issues. 12-point review of systems is negative except for those stated above. Patient History <JERRY Leahy - Last Filed: 12/30/19 22:36> Medical History Healthy female (Chronic) Surgical History H/O wisdom tooth extraction (Resolved) Social History Smoking Status: Current every day smoker substance use type: marijuana Smoking Status: Current every day smoker tobacco type: cigarettes and vaping alcohol intake frequency: a few times a week Alcohol type: hard liquor Substance Use Type: marijuana Exam <JERRY Leahy - Last Filed: 12/30/19 22:36> Narrative Exam Narrative: GEN: Alert, oriented x 3, well appearing and nourished, and in no acute distress. Head: Normal cephalic, atraumatic. No scalp or temporal tenderness, palpable mass or rash. EYES: Pupils are equal, round, and reactive to light and accommodation. Extraocular muscles are intact bilaterally. There is no subconjunctival hemorrhage, exudate and sclera non-icteric. ENT: Hearing grossly intact. Nose without bleeding, purulent discharge. Mucous membrane moist, no mucosal lesion. Throat without erythema, tonsillar hypertrophy or exudate. Uvula in midline, airway patent. Neck: Trachea in midline. No JVD, non-tender without lymphadenopathy. No masses or thyroid megaly. Supple, non-tender and no meningeal signs. CARDIAC: Normal regular rate and rhythm without murmurs, gallops, or rubs. Focalized chest wall tenderness in lateral ribs . No peripheral edema, cyanosis or pallor. Capillary refill is less than 2 seconds. RESPIRATORY: Lungs are clear to auscultate bilaterally. No cough, wheezes, rales, or rhonchi. No stridor, respiratory distress, increase work of breathing, or accessary muscle used. ABD: Abdomen soft, nontender and non-distended. No guarding or rebound tenderness to palpate. Bowel sounds are normal in all 4 quadrants. There is no palpable masses or organomegaly. EXT: Full painless ROM of all extremities with no loss of sensation, strength, effusion or edema. SKIN: Warm, dry, normal color for patient. No erythema, lesions or rash over visible areas. BACK: Nontender without deformity or crepitance. No flank tenderness. NEUROLOGICAL: Alert and oriented to place, time and person. Sensation and motor function intact bilaterally. No facial droops, dysphasia. PSYCHIATRIC: Good judgement and reason, without hallucinations, abnormal affect or abnormal behaviors during the examination. Initial Vital Signs Initial Vital Signs: Vital Signs Temperature 97.1 F L 12/30/19 15:29 Pulse Rate 82 12/30/19 15:29 Respiratory Rate 18 12/30/19 15:29 Blood Pressure 142/89 H 12/30/19 15:29 Pulse Oximetry 99 12/30/19 15:29 <Radha Kim MD - Last Filed: 12/31/19 07:26> Initial Vital Signs Initial Vital Signs: Vital Signs Temperature 97.1 F L 12/30/19 15:29 Pulse Rate 82 12/30/19 15:29 Respiratory Rate 18 12/30/19 15:29 Blood Pressure 142/89 H 12/30/19 15:29 Pulse Oximetry 99 12/30/19 15:29 Scores <JERRY Leahy - Last Filed: 12/30/19 22:36> GCS [place] coma scale eye opening: Spontaneous [place] coma scale verbal response: Orientated [place] coma scale motor response: Obey commands [place] coma scale total score: 15 Course <JERRY Leahy - Last Filed: 12/30/19 22:36> Vital Signs Vital signs: Vital Signs - 8 hr 12/30/19 15:29 Temperature 97.1 F L Pulse Rate 82 Respiratory Rate 18 Blood Pressure 142/89 H Pulse Oximetry 99 <Radha Kim MD - Last Filed: 12/31/19 07:26> Vital Signs Vital signs: Vital Signs - 8 hr 12/30/19 15:29 Temperature 97.1 F L Pulse Rate 82 Respiratory Rate 18 Blood Pressure 142/89 H Pulse Oximetry 99 [facility] - Back Pain/Injury <JERRY Leahy - Last Filed: 12/30/19 22:36> Differential Diagnosis Differential diagnosis: Likely thoracic back pain and other (Costochondritis, atypical chest pain) Medical Records Attestation: I reviewed the patient's medical records. [facility] Narrative Medical decision making narrative: This is 24 year female who presents to ED with chief complain of focalized right lateral rib pain which at times radiates to anterior chest and posterior back which gets worse with movements, lifting, bending forwards. Patient states exact same characteristic of pain, location a month ago and diagnosed with costal chondritis which is now more severe after she over exerts herself with mowing the lawn last week. Physical exam is unremarkable. Given patient's symptoms is exactly seen from previous visit when she had negative chest x-ray and there is no recent injury or trauma, x-ray test was deferred. Patient discharged to home with Flexeril for muscle relaxant and naproxen for inflammation and pain management which worked well last time. Return precautions were discussed with patient and patient advised to rest and not exerting herself during with the acute pain. Patient verbalized understanding and agreement with the treatment plan. Discharge Plan Departure Patient Disposition: Home Clinical Impression: Acute costochondritis Discharge Date/Time: 12/30/19 16:40 Activity Restrictions/Additional Instructions: You have been diagnosed with [recurring costal chondritis. No trauma, fall, injury to affected rib and reported pain is very similar from the previous visit at the same location.]. What to do: *Take your medications as directed. Muscle relaxant and Naproxen have been prescribed and this medications have transmitted to [facility] in [place]. *Follow up with your primary care provider in 2-3 days, call for an appointment. [facility] Resource phone number has been provided to select the PCP. Let them know you were seen in the ED and that we asked you to be seen in follow up. Please avoid straining or overusing the affected muscle. *Return to ED if you have any new, worsening, or concerning symptoms, such as [worsening pain, different chest pain, breathing difficulty, unable to tolerate fluids, fever, productive cough or any acute concerns]. Prescriptions: New cyclobenzaprine 10 mg tablet 10 mg PO TID PRN (Reason: muscle spasm) Qty: 15 RF: 0 naproxen 500 mg tablet 500 mg PO BID PRN (Reason: pain) Qty: 14 RF: 0 No Action ibuprofen 800 mg tablet 800 mg PO TID PRN (Reason: pain) Qty: 20 RF: 0 naproxen [Naprosyn] 500 mg tablet 500 mg PO BID PRN (Reason: pain) Qty: 14 RF: 0 cyclobenzaprine 10 mg tablet 10 mg PO TID PRN (Reason: muscle spasm) Qty: 15 RF: 0 Referrals: [facility] [Outside] <Radha Kim MD - Last Filed: 12/31/19 07:26> [facility]: I was immediately available in the department for consultation throughout this patient's visit. I agree with documentation as above. Radha Kim MD
== END 2019-12-30 16:40 | disposition home or self-care (01) ==
PROVIDERS: Emergency Provider Nurse Practitioner Family
DX: M94.0 Chondrocostal junction syndrome [Tietze] (principal)
CPT/HCPCS: 99281

== ENCOUNTER 2020-01-11 15:33 | Emergency (ER) | payer OTHER, MEDICAID, SELFPAY ==
[2020-01-11 15:39] VITALS: BP 134/76; PULSE 120; RESP 15; TEMP 36.7; O2SAT 99; BMI 40.3
--- NOTE | 2020-01-11 17:37 | DI.RAD.S_ITS ---
PROCEDURE: XR CHEST 2V INDICATIONS: sob, wheezing TECHNIQUE: 2 views of the chest were acquired. COMPARISON: [facility], CR, XR RIBS RT MIN 3V W CXR 1V, 11/29/2019, 23:08. [facility], CR, XR CHEST 1V, 03/02/2018, 14:20. FINDINGS: Surgical changes and devices: None. Lungs and pleura: No focal pulmonary consolidation is appreciated. There is vague increased density at the left lung base that is not well characterized. No effusion or pneumothorax is identified. Mediastinum: Mediastinal contours are normal. Heart size is normal. Bones and chest wall: No suspicious bony abnormalities. Soft tissues appear unremarkable. IMPRESSION: Vague increased density at the left lung base probably represents normal pulmonary vascular structures. The possibility of a mild atelectasis or a developing pneumonia cannot be completely excluded. Please correlate clinically. Dictated by: Johnny Velázquez M.D. on 01/11/2020 at 16:59 Approved by: Johnny Velázquez M.D. on 01/11/2020 at 17:01
[2020-01-11 17:58] VITALS: PULSE 96; RESP 16; O2SAT 98
[2020-01-11] MEDS: ALBUTEROL HFA PREPACK 1 BOX MISC (17:58)
[2020-01-11 18:15] VITALS: BP 138/84; PULSE 98; RESP 16; O2SAT 98
[2020-01-11 19:00] VITALS: BP 138/71; PULSE 98; RESP 16; O2SAT 100
--- NOTE | 2020-01-11 19:16 | ED_ITS ---
HPI - Extremity Problem <MOSHE Burnette - Last Filed: 01/11/20 19:21> General Chief complaint: Extremity Problem,Nontraumatic Stated complaint: states costochondritis over a month Time Seen by Provider: 01/11/20 17:12 Source: patient Mode of arrival: Ambulatory Limitations: no limitations History of Present Illness HPI Narrative: The patient is a 24-year-old female current smoker with history of costochondritis who presents with a chief complaint of continue costochondritis. She states she has had this for months, is having trouble following up with primary care provider due to coronavirus. She states that she has pain on the right side of her ribs. She states that this has been going on, worsened by when she was mowing her lawn. She complains of chronic wheeze and has never tried an inhaler. She denies any productive cough, fevers nausea vomiting or diarrhea. She states that initially the cyclobenzaprine and and since that were given to her were helpful. However since she has run out and has been unable to get into her primary care provider. She states that the pain in her right chest is worse with deep breathing, musculoskeletal movements and pressure. Related Data Previous Rx's Medication Instructions Recorded ibuprofen 800 mg PO TID PRN #20 tab 03/04/18 cyclobenzaprine 10 mg PO TID PRN #15 tab 11/30/19 naproxen [Naprosyn] 500 mg PO BID PRN #14 tab 11/30/19 cyclobenzaprine 10 mg PO TID PRN #15 tab 12/30/19 naproxen 500 mg PO BID PRN #14 tab 12/30/19 prednisone 40 mg PO DAILY #10 tab 01/11/20 Allergies Allergy/AdvReac Type Severity Reaction Status Date / Time hydrogen peroxide Allergy Unknown hives Verified 01/11/20 15:39 [HYDROGEN PEROXIDE] Review of Systems <MOSHE Burnette - Last Filed: 01/11/20 19:21> Review of Systems Narrative: GENERAL: Denies chills, fatigue, malaise, fever, sweats. HEENT: Denies sinus pain, ear pain, sore throat, difficulty swallowing, dizziness. RESPIRATORY: See HPI CARDIOVASCULAR: Denies chest pain, palpitations, orthopnea, edema, GASTROINTESTINAL: Denies nausea, vomiting, abdominal pain, diarrhea, constipation, melena. : Denies dysuria, frequency, incontinence, hematuria, urinary retention. MUSCULOSKELETAL: See HPI SKIN: Denies rash, skin lesions, or other NEUROLOGIC: Denies weakness, headache, numbness, change in speech, confusion, seizures, incoordination. PSYCHIATRIC: No concerning psychosocial issues. 12 point review of systems is negative except for those stated above Patient History <MOSHE Burnette - Last Filed: 01/11/20 19:21> Social History Smoking Status: Current every day smoker substance use type: marijuana Smoking Status: Current every day smoker tobacco type: cigarettes and vaping alcohol intake frequency: a few times a week Alcohol type: hard liquor Substance Use Type: marijuana Exam <MATT Burnette - Last Filed: 01/11/20 19:21> Narrative Exam Narrative: GENERAL: This is a well-nourished, well-developed patient, in no acute distress HEAD: Atraumatic. Normocephalic. No temporal or scalp tenderness. EYES: Pupils equal round and reactive. Extraocular motions intact. No scleral icterus. No injection or drainage. ENT: Nose without bleeding, purulent drainage or septal hematoma. Throat without erythema, tonsillar hypertrophy or exudate. Uvula midline. Airway patent. NECK: Trachea midline. No JVD or lymphadenopathy. Supple, nontender, no meningeal signs. CARDIOVASCULAR: Regular rate and rhythm without murmurs, gallops, or rubs. RESPIRATORY: Clear to auscultation. Breath sounds equal bilaterally. No rales, or rhonchi. Pain to palpation right lower ribs. Diffuse expiratory wheeze bilaterally. Speaking full sentences. GASTROINTESTINAL: Abdomen soft, non-tender, nondistended. No hepato- splenomegaly, or palpable masses. No guarding. EXTREMITIES: No clubbing, cyanosis, or edema. No joint tenderness, effusion, or edema noted. BACK: Nontender without deformity or crepitance. No flank tenderness. NEURO: AOx3. SKIN: No rash or erythema on visible skin. No erythema ecchymosis rash laceration or abrasion right lower chest wall Initial Vital Signs Initial Vital Signs: Vital Signs Temperature 98.1 F 01/11/20 15:39 Pulse Rate 120 H 01/11/20 15:39 Respiratory Rate 15 01/11/20 15:39 Blood Pressure 134/76 01/11/20 15:39 Pulse Oximetry 99 01/11/20 15:39 <DO Khadijah Magallanes Last Filed: 01/11/20 19:28> Initial Vital Signs Initial Vital Signs: Vital Signs Temperature 98.1 F 01/11/20 15:39 Pulse Rate 120 H 01/11/20 15:39 Respiratory Rate 15 01/11/20 15:39 Blood Pressure 134/76 01/11/20 15:39 Pulse Oximetry 99 01/11/20 15:39 Course <MANE Burnette-BC - Last Filed: 01/11/20 19:21> Orders Ordered: ED Orders 01/11/20 17:37 XR chest 2V Stat RT Consult Eval and Treat NOW Discontinued Medications Albuterol (Ventolin Hfa Prepack) 1 box MIS SEEINSTR ONE Stop: 01/11/20 17:53 Last Admin: 01/11/20 17:58 Dose: 1 box Documented by: WILLIS Vital Signs Vital signs: Vital Signs - 8 hr 01/11/20 15:39 01/11/20 17:58 01/11/20 18:15 Temperature 98.1 F Pulse Rate 120 H 96 H 98 H Respiratory Rate 15 16 16 Blood Pressure 134/76 Blood Pressure [Left Arm] 138/84 Pulse Oximetry 99 98 98 01/11/20 19:00 Temperature Pulse Rate 98 H Respiratory Rate 16 Blood Pressure Blood Pressure [Left Arm] 138/71 Pulse Oximetry 100 <DO Khadijah Magallanes Last Filed: 01/11/20 19:28> Orders Ordered: ED Orders 01/11/20 17:37 XR chest 2V Stat RT Consult Eval and Treat NOW Discontinued Medications Albuterol (Ventolin Hfa Prepack) 1 box MISC SEEINSTR ONE Stop: 01/11/20 17:53 Last Admin: 01/11/20 17:58 Dose: 1 box Documented by: WILLIS Vital Signs Vital signs: Vital Signs - 8 hr 01/11/20 15:39 01/11/20 17:58 01/11/20 18:15 Temperature 98.1 F Pulse Rate 120 H 96 H 98 H Respiratory Rate 15 16 16 Blood Pressure 134/76 Blood Pressure [Left Arm] 138/84 Pulse Oximetry 99 98 98 01/11/20 19:00 Temperature Pulse Rate 98 H Respiratory Rate 16 Blood Pressure Blood Pressure [Left Arm] 138/71 Pulse Oximetry 100 MDM - Extremity (Nontraumatic) <MOSHE Burnette - Last Filed: 01/11/20 19:21> Imaging Data Chest x-ray: Radiologist's Impression: [address] [place] [id number] XRay Report Signed Patient: Joyce Car IMR#: [id number] : 1995Acct:[id number] Age/Sex: te of Service: 01/11/20 Loc: ED Accession Number: [id number] Procedure: XR chest 2V Ordering Provider: Sue Puga PROCEDURE: XR CHEST 2V INDICATIONS: sob, wheezing TECHNIQUE: 2 views of the chest were acquired. COMPARISON: [facility], CR, XR RIBS RT MIN 3V W CXR 1V, 11/29/2019, 23:08. [facility], CR, XR CHEST 1V, 03/02/2018, 14:20. FINDINGS: Surgical changes and devices: None. Lungs and pleura: No focal pulmonary consolidation is appreciated. There is vague increased density at the left lung base that is not well characterized. No effusion or pneumothorax is identified. Mediastinum: Mediastinal contours are normal. Heart size is normal. Bones and chest wall: No suspicious bony abnormalities. Soft tissues appear unremarkable. IMPRESSION: Vague increased density at the left lung base probably represents normal pulmonary vascular structures. The possibility of a mild atelectasis or a developing pneumonia cannot be completely excluded. Please correlate clinically. Dictated by: Johnny Velázquez M.D. on 01/11/2020 at 16:59 Approved by: Johnny Velázquez M.D. on 01/11/2020 at 17:01 MDM Narrative Medical decision making narrative: The patient is a 24-year-old female who presents with a chief complaint of continued right-sided chest wall pain with motion. Exam indicates musculoskeletal pain. She was given albuterol MDI with spacer which helped her wheezing. I discussed smoking cessation and not smoking marijuana several times a day with the patient. X-ray shows possible mild atelectasis or developing pneumonia, but the patient does not clinically have pneumonia, does not have a productive cough or fever. Thus I believe it is atelectasis. Did elect to do a course of steroids. Discussed at length the importance of following up with primary care provider come back to the emergency department for any acute concerns Discharge Plan Departure Patient Disposition: Home Clinical Impression: Acute chest wall pain, Wheezing Discharge Date/Time: 01/11/20 19:19 Instructions: How to Use a Metered-Dose Inhaler, DI for Costochondritis, DI for Shortness of Breath Activity Restrictions/Additional Instructions: Thank you for trusting us with your care today. Please follow-up with primary care provider next few days. I sent a prescription of prednisone to [facility]. Please start this tomorrow morning. Also please continue to use [id number] medications as needed and able ice packs. Please back to the emergency department for any acute concerns. Prescriptions: New prednisone 20 mg tablet 40 mg PO DAILY Qty: 10 RF: 0 No Action ibuprofen 800 mg tablet 800 mg PO TID PRN (Reason: pain) Qty: 20 RF: 0 naproxen [Naprosyn] 500 mg tablet 500 mg PO BID PRN (Reason: pain) Qty: 14 RF: 0 cyclobenzaprine 10 mg tablet 10 mg PO TID PRN (Reason: muscle spasm) Qty: 15 RF: 0 cyclobenzaprine 10 mg tablet 10 mg PO TID PRN (Reason: muscle spasm) Qty: 15 RF: 0 naproxen 500 mg tablet 500 mg PO BID PRN (Reason: pain) Qty: 14 RF: 0 Referrals: [facility] [Outside] <Anderson Ibarra, - Last Filed: 01/11/20 19:28> [facility] Dr Ibarra Co-Sign Statement: I was available for consultation during this patient's emergency department visit. This chart is signed by myself for administrative purposes only. I did not have direct contact with this patient during this visit. They were seen independently by the APC.
== END 2020-01-11 19:19 | disposition home or self-care (01) ==
PROVIDERS: Emergency Provider Nurse Practitioner Family
DX: R07.89 Other chest pain (principal); R06.2 Wheezing; M94.0 Chondrocostal junction syndrome [Tietze]
CPT/HCPCS: 71046; 94640; 99283

== ENCOUNTER 2020-04-11 11:38 | Emergency (ER) | payer OTHER, MEDICAID, SELFPAY ==
[2020-04-11] VITALS (8 sets, daily range): BP systolic 125–144; BP diastolic 77–91; PULSE 57–75; RESP 14–18; TEMP 36.4; O2SAT 97–100; BMI 39.4
--- NOTE | 2020-04-11 11:50 | DI.RAD.S_ITS ---
PROCEDURE: XR ACUTE ABDOMEN SERIES INDICATIONS: abd pain TECHNIQUE: One view chest and two views of the abdomen were acquired. COMPARISON: [facility], CR, XR CHEST 1V, 03/02/2018, 14:20. [facility], CR, XR LUMBAR SPINE 2-3V, 04/29/2019, 18:55. [facility], CR, XR CHEST 2V, 01/11/2020, 17:36. FINDINGS: Surgical changes and devices: An IUD is seen at its expected location. Chest: Lungs are clear. Heart size is normal. No pleural effusions. No pneumoperitoneum. Abdomen: Bowel gas pattern is normal. No suspicious calcifications. Visualized solid organ contours appear normal. Bones: No suspicious bony lesions. Mild levoconvex scoliotic curvature is noted. IMPRESSION: A nonobstructive bowel gas pattern is seen. As clinically appropriate, please consider a repeat plain film study or a dedicated CT of the abdomen and pelvis, if the patient's symptoms persist or worsen. Clear lungs. IUD noted. Dictated by: Rohith Goldstein M.D. on 04/11/2020 at 11:34 Approved by: Rohith Goldstein M.D. on 04/11/2020 at 11:35
[2020-04-11] MEDS: SODIUM CHLORIDE 0.9% 1,000 ML 1000 ML IV (12:00)
[2020-04-11] MEDS: PANTOPRAZOLE 40 MG VIAL IV (12:00)
[2020-04-11] MEDS: ONDANSETRON 4 MG/2 ML INJ IV (12:00)
[2020-04-11 12:09] LABS: Add Manual Diff / Slide Review NO; Basophils Absolute Auto 100 /uL (0-100); Basophils Percent Auto 0.9 % (0-2); Eosinophils Absolute Auto 600 /uL (0-450); Eosinophils Percent Auto 6.5 % (2-4); Hematocrit 38.4 % (36-46); Hemoglobin 13.1 g/dL (12.0-16.0); Lymphocytes Absolute Auto 1800 /uL (1100-4500); Lymphocytes Percent Auto 18.2 % (25-40); Mean Corpuscular HGB Conc 34.3 % (30-36); Mean Corpuscular Hemoglobin 31.5 PG (26-34); Mean Corpuscular Volume 91.8 fL (80-100); Monocytes Absolute Auto 600 /uL (0-900); Monocytes Percent Auto 5.6 % (3-14); Neutrophils Absolute Auto 6900 /uL (1500-7000); Neutrophils Percent Auto 68.8 % (50-75); Platelet Count 214 X10^3/uL (150-400); Red Blood Cell Count 4.18 X10^6/uL (4.0-5.2); Red Cell Distribution Width 12.7 % (11.6-14.8)
[2020-04-11 12:21] LABS: Alanine Aminotransferase 29 IU/L (<35); Albumin 4.1 g/dL (3.5-5.0); Albumin Globulin Ratio 1.3 (1.0-2.8); Alkaline Phosphatase 92 U/L (38-126); Amylase 74 U/L (30-110); Aspartate Aminotransferase 30 IU/L (14-36); BUN Creatinine Ratio 12.1 (6-22); Bilirubin Total 1.1 mg/dL (0.2-1.3); Blood Urea Nitrogen 8 mg/dL (7-17); Calcium 9.2 mg/dL (8.4-10.2); Carbon Dioxide 26 mmol/L (22-32); Chloride 106 mmol/L (98-107); Estimated Glomerular Filt Rate > 60.0 mL/min (>60); Globulin 3.2 g/dL (1.7-4.1); Glucose 129 mg/dL (70-100); HEMOLYSIS 26 (0-50); Lipase 88 U/L (23-300); Magnesium 1.8 mg/dL (1.6-2.3); Sodium 137 mmol/L (137-145); Total Protein 7.3 g/dL (6.3-8.2)
--- NOTE | 2020-04-11 12:26 | ED_ITS ---
HPI - Abdominal Pain <MOSHE Burnette - Last Filed: 04/11/20 15:00> General Chief Complaint: Abdominal Pain Stated Complaint: stomache pain x 4days, middle and right side Time Seen by Provider: 04/11/20 11:41 Source: patient Mode of arrival: Ambulatory Limitations: no limitations History of Present Illness HPI narrative: The patient is a 25-year-old female current smoker presents with a chief complaint of abdominal pain for the past 4 days. She states that this is not uncommon for her, that she has ?gas pain fairly frequently but this did not go way after 4 days so she came to the emergency department. She states her last bowel movement was earlier today approximately 2 hours ago and normal for her. She denies any fevers. She was nauseous once yesterday but otherwise no nausea or vomiting. She did any history of abdominal surgeries. She does have a history of costochondritis for which she takes ibuprofen. She states that she has taken doses of 1600 mg of ibuprofen, which she took this morning. She also stopped and had some Klein's on her way into the emergency department today. She has not taken anything at home to feel better other than Gas-X. She states that she occasionally takes 1600 mg of ibuprofen, usually takes 800. She denies any dysuria urgency or frequency, denies any possibility of . She states that the pain is relieved by ?juggling my abdomen as well as walking. She states it moves throughout her stomach. Related Data Previous Rx's Medication Instructions Recorded ibuprofen 800 mg PO TID PRN #20 tab 03/04/18 cyclobenzaprine 10 mg PO TID PRN #15 tab 11/30/19 naproxen [Naprosyn] 500 mg PO BID PRN #14 tab 11/30/19 cyclobenzaprine 10 mg PO TID PRN #15 tab 12/30/19 naproxen 500 mg PO BID PRN #14 tab 12/30/19 prednisone 40 mg PO DAILY #10 tab 01/11/20 pantoprazole [Protonix] 40 mg PO DAILY #14 tab 04/11/20 Allergies Allergy/AdvReac Type Severity Reaction Status Date / Time hydrogen peroxide Allergy Unknown hives Verified 01/11/20 15:39 [HYDROGEN PEROXIDE] Review of Systems <MOSHE Burnette - Last Filed: 04/11/20 15:00> Review of Systems Narrative: GENERAL: Denies chills, fatigue, malaise, fever, sweats. HEENT: Denies sinus pain, ear pain, sore throat, difficulty swallowing, dizziness. RESPIRATORY: Denies dyspnea, cough, wheezing, hemoptysis, sputum. CARDIOVASCULAR: Denies chest pain, palpitations, orthopnea, edema, GASTROINTESTINAL: See HPI : Denies dysuria, frequency, incontinence, hematuria, urinary retention. MUSCULOSKELETAL: denies weakness, joint pain, or bony pain SKIN: Denies rash, skin lesions, or other NEUROLOGIC: Denies weakness, headache, numbness, change in speech, confusion, seizures, incoordination. PSYCHIATRIC: No concerning psychosocial issues. 12 point review of systems is negative except for those stated above Patient History <MOSHE Burnette - Last Filed: 04/11/20 15:00> Medical History (Updated 04/11/20 @ 14:58 by MOSHE Burnette) Healthy female (Chronic) Surgical History H/O wisdom tooth extraction (Resolved) Social History Smoking Status: Current every day smoker substance use type: marijuana Smoking Status: Current every day smoker tobacco type: cigarettes and vaping alcohol intake frequency: a few times a week Alcohol type: hard liquor Substance Use Type: marijuana Exam <MOSHE Burnette - Last Filed: 04/11/20 15:00> Narrative Exam Narrative: GENERAL: This is a well-nourished, well-developed patient, no acute distress HEAD: Atraumatic. Normocephalic. No temporal or scalp tenderness. EYES: Pupils equal round and reactive. Extraocular motions intact. No scleral icterus. No injection or drainage. ENT: Nose without bleeding, purulent drainage or septal hematoma. Wearing a mask. Airway patent. NECK: Trachea midline. No JVD or lymphadenopathy. Supple, nontender, no meningeal signs. CARDIOVASCULAR: Regular rate and rhythm without murmurs, gallops, or rubs. RESPIRATORY: Clear to auscultation. Breath sounds equal bilaterally. No wheezes, rales, or rhonchi. No cough. No increased respiratory effort. No accessory muscle use GASTROINTESTINAL: Abdomen soft, diffusely tender to palpation, nondistended. No hepato-splenomegaly, or palpable masses. No guarding. Active bowel sounds all 4 quadrants. Negative Snyder sign. No pain at McBurney's point. EXTREMITIES: No clubbing, cyanosis, or edema. No joint tenderness, effusion, or edema noted. BACK: Nontender without deformity or crepitance. No flank tenderness. NEURO: AOx3. SKIN: No rash or erythema on visible skin Initial Vital Signs Initial Vital Signs: Vital Signs Temperature 97.6 F 04/11/20 12:02 Pulse Rate 71 04/11/20 12:02 Respiratory Rate 14 04/11/20 12:02 Blood Pressure 132/77 04/11/20 12:02 Pulse Oximetry 100 04/11/20 12:02 <Chad Schmidt MD - Last Filed: 04/12/20 19:19> Initial Vital Signs Initial Vital Signs: Vital Signs Temperature 97.6 F 04/11/20 12:02 Pulse Rate 71 04/11/20 12:02 Respiratory Rate 14 04/11/20 12:02 Blood Pressure 132/77 04/11/20 12:02 Pulse Oximetry 100 04/11/20 12:02 Scores <MOSHE Burnette - Last Filed: 04/11/20 15:00> GCS Elkins coma scale eye opening: Spontaneous Elkins coma scale verbal response: Orientated Conchis coma scale motor response: Obey commands Elkins coma scale total score: 15 Course <MOSHE Burnette - Last Filed: 04/11/20 15:00> Orders Ordered: Discontinued Medications Al Hydrox/Mg Hydrox/Simethicone 20 ml/ Lidocaine HCl 15 ml 0 ml PO NOW ONE Stop: 04/11/20 13:26 Last Admin: 04/11/20 14:28 Dose: 35 ml Documented by: MATTHEW Sodium Chloride (Normal Saline 0.9%) 1,000 mls @ 1,000 mls/hr IV BOLUS ONE Stop: 04/11/20 12:50 Last Infusion: 04/11/20 14:29 Dose: 0 mls/hr Documented by: Admin: 04/11/20 12:00 Dose: 1,000 mls/hr Documented by: MATTHEW Ondansetron HCl (Zofran) 4 mg IV NOW ONE Stop: 04/11/20 11:52 Last Admin: 04/11/20 12:00 Dose: 4 mg Documented by: MATTHEW Pantoprazole Sodium (Protonix) 40 mg IV NOW ONE Stop: 04/11/20 11:52 Last Admin: 04/11/20 12:00 Dose: 40 mg Documented by: MATTHEW Vital Signs Vital signs: Vital Signs - 8 hr 04/11/20 12:02 04/11/20 13:00 04/11/20 14:40 Temperature 97.6 F Pulse Rate 71 66 74 Respiratory Rate 14 17 15 Blood Pressure 132/77 127/85 144/87 H Pulse Oximetry 100 99 100 <Chad Schmidt MD - Last Filed: 04/12/20 19:19> Orders Ordered: Discontinued Medications Al Hydrox/Mg Hydrox/Simethicone 20 ml/ Lidocaine HCl 15 ml 0 ml PO NOW ONE Stop: 04/11/20 13:26 Last Admin: 04/11/20 14:28 Dose: 35 ml Documented by: MATTHEW Sodium Chloride (Normal Saline 0.9%) 1,000 mls @ 1,000 mls/hr IV BOLUS ONE Stop: 04/11/20 12:50 Last Infusion: 04/11/20 14:29 Dose: 0 mls/hr Documented by: Admin: 04/11/20 12:00 Dose: 1,000 mls/hr Documented by: MATTHEW Ondansetron HCl (Zofran) 4 mg IV NOW ONE Stop: 04/11/20 11:52 Last Admin: 04/11/20 12:00 Dose: 4 mg Documented by: MATTHEW Pantoprazole Sodium (Protonix) 40 mg IV NOW ONE Stop: 04/11/20 11:52 Last Admin: 04/11/20 12:00 Dose: 40 mg Documented by: MATTHEW Vital Signs Vital signs: Vital Signs - 8 hr 04/11/20 12:02 04/11/20 13:00 04/11/20 14:40 Temperature 97.6 F Pulse Rate 71 66 74 Respiratory Rate 14 17 15 Blood Pressure 132/77 127/85 144/87 H Pulse Oximetry 100 99 100 MDM - Abdominal Pain <MOSHE Burnette - Last Filed: 04/11/20 15:00> Lab Data Result diagrams: 04/11/20 11:59 04/11/20 11:59 Labs: Lab Results 04/11/20 04/11/20 Range/Units 11:59 11:59 WBC 10.0 (4.5-11.0) X10^3/uL RBC 4.18 (4.0-5.2) X10^6/uL Hgb 13.1 (12.0-16.0) g/dL Hct 38.4 (36-46) % MCV 91.8 (80-100) fL MCH 31.5 (26-34) PG MCHC 34.3 (30-36) % RDW 12.7 (11.6-14.8) % Plt Count 214 (150-400) X10^3/uL Neut % (Auto) 68.8 (50-75) % Lymph % (Auto) 18.2 L (25-40) % Smyth % (Auto) 5.6 (3-14) % Eos % (Auto) 6.5 H (2-4) % Baso % (Auto) 0.9 (0-2) % Neut # (Auto) 6900 (5553-3356) /uL Lymph # (Auto) 1800 (1064-1871) /uL Smyth # (Auto) 600 (0-900) /uL Eos # (Auto) 600 H (0-450) /uL Baso # (Auto) 100 (0-100) /uL Sodium 137 (137-145) mmol/L Potassium 4.0 (3.4-5.1) mmol/L Chloride 106 (98-107) mmol/L Carbon Dioxide 26 (22-32) mmol/L BUN 8 (7-17) mg/dL Creatinine 0.66 (0.52-1.04) mg/dL Estimated GFR > 60.0 (>60) mL/min BUN/Creatinine Ratio 12.1 (6-22) Glucose 129 H (70-100) mg/dL Calcium 9.2 (8.4-10.2) mg/dL Magnesium 1.8 (1.6-2.3) mg/dL Total Bilirubin 1.1 (0.2-1.3) mg/dL AST 30 (14-36) IU/L ALT 29 (<35) IU/L Alkaline Phosphatase 92 (38-126) U/L Total Protein 7.3 (6.3-8.2) g/dL Albumin 4.1 (3.5-5.0) g/dL Globulin 3.2 (1.7-4.1) g/dL Albumin/Globulin Ratio 1.3 (1.0-2.8) Amylase 74 (30-110) U/L Lipase 88 (23-300) U/L Point of care testing: Point of Care Testing Test Results Negative Urine Dip Bedside Urine Glucose Negative Bedside Urine Bilirubin - Negative Bedside Urine Ketone - Negative Urine Specific [place] 1.010 Bedside Urine Occult Blood - Negative Bedside Urine pH 6.0 Bedside Urine Protein - Negative Bedside Urine Urobilinogen - Negative Bedside Urine Nitrite - Negative Bedside Urine Leukocytes - Negative Esterase Imaging Data Abdominal x-ray: Radiologist's Impression: [address] [place] [id number] XRay Report Signed Patient: Joyce Car [facility]#: [id number] : 1995Acct:[id number] Age/Sex: te of Service: 04/11/20 Loc: ED Accession Number: [id number] Procedure: XR acute abdomen series Ordering Provider: Sue Puga PROCEDURE: XR ACUTE ABDOMEN SERIES INDICATIONS: abd pain TECHNIQUE: One view chest and two views of the abdomen were acquired. COMPARISON: [facility], CR, XR CHEST 1V, 03/02/2018, 14:20. [facility], CR, XR LUMBAR SPINE 2-3V, 04/29/2019, 18:55. [facility], CR, XR CHEST 2V, 0, 17:36. FINDINGS: Surgical changes and devices: An IUD is seen at its expected location. Chest: Lungs are clear. Heart size is normal. No pleural effusions. No pneumoperitoneum. Abdomen: Bowel gas pattern is normal. No suspicious calcifications. Visualized solid organ contours appear normal. Bones: No suspicious bony lesions. Mild levoconvex scoliotic curvature is noted. IMPRESSION: A nonobstructive bowel gas pattern is seen. As clinically appropriate, please consider a repeat plain film study or a dedicated CT of the abdomen and pelvis, if the patient's symptoms persist or worsen. Clear lungs. IUD noted. Dictated by: Katya MoralesD. on 04/11/2020 at 11:34 Approved by: Rohith Goldstein M.D. on 04/11/2020 at 11:35 [facility] Narrative Medical decision making narrative: The patient is a 25-year-old female who presents with a chief complaint of 4-5 days of abdominal pain. It got worse today after she took a 16 200 mg dose of ibuprofen, which I discussed at length with her is too much and can cause stomach irritation. She did not have an acute abdomen on exam, and feels much improved after the above-stated therapies. I discussed at length not taking large ibuprofen doses, watching as sudden food, use of Protonix etcetera. Discussed at length return precautions such as abdominal pain with fever etcetera. Upon re-evaluation, the patient has no pain. Discussed a light diet, she continues no pain no abdominal palpation. Patient has no questions or concerns upon discharge and states understanding of return precautions as well as follow-up care. I discussed at length with the patient that she has primary care provider, gave her contact information [facility] health resource recovery engineer. She has been hemodynamically stable stable and afebrile throughout her stay in the emergency department. <Chad Schmidt MD - Last Filed: 04/12/20 19:19> Lab Data Labs: Lab Results 04/11/20 04/11/20 Range/Units 11:59 11:59 WBC 10.0 (4.5-11.0) X10^3/uL RBC 4.18 (4.0-5.2) X10^6/uL Hgb 13.1 (12.0-16.0) g/dL Hct 38.4 (36-46) % MCV 91.8 (80-100) fL MCH 31.5 (26-34) PG MCHC 34.3 (30-36) % RDW 12.7 (11.6-14.8) % Plt Count 214 (150-400) X10^3/uL Neut % (Auto) 68.8 (50-75) % Lymph % (Auto) 18.2 L (25-40) % Smyth % (Auto) 5.6 (3-14) % Eos % (Auto) 6.5 H (2-4) % Baso % (Auto) 0.9 (0-2) % Neut # (Auto) 6900 (0397-6402) /uL Lymph # (Auto) 1800 (9720-1125) /uL Smyth # (Auto) 600 (0-900) /uL Eos # (Auto) 600 H (0-450) /uL Baso # (Auto) 100 (0-100) /uL Sodium 137 (137-145) mmol/L Potassium 4.0 (3.4-5.1) mmol/L Chloride 106 (98-107) mmol/L Carbon Dioxide 26 (22-32) mmol/L BUN 8 (7-17) mg/dL Creatinine 0.66 (0.52-1.04) mg/dL Estimated GFR > 60.0 (>60) mL/min BUN/Creatinine Ratio 12.1 (6-22) Glucose 129 H (70-100) mg/dL Calcium 9.2 (8.4-10.2) mg/dL Magnesium 1.8 (1.6-2.3) mg/dL Total Bilirubin 1.1 (0.2-1.3) mg/dL AST 30 (14-36) IU/L ALT 29 (<35) IU/L Alkaline Phosphatase 92 (38-126) U/L Total Protein 7.3 (6.3-8.2) g/dL Albumin 4.1 (3.5-5.0) g/dL Globulin 3.2 (1.7-4.1) g/dL Albumin/Globulin Ratio 1.3 (1.0-2.8) Amylase 74 (30-110) U/L Lipase 88 (23-300) U/L Point of care testing: Point of Care Testing Test Results Negative Urine Dip Bedside Urine Glucose Negative Bedside Urine Bilirubin - Negative Bedside Urine Ketone - Negative Urine Specific [place] 1.010 Bedside Urine Occult Blood - Negative Bedside Urine pH 6.0 Bedside Urine Protein - Negative Bedside Urine Urobilinogen - Negative Bedside Urine Nitrite - Negative Bedside Urine Leukocytes - Negative Esterase Discharge Plan Departure Patient Disposition: Home Clinical Impression: Abdominal pain Qualifiers: Abdominal location: generalized Qualified Code(s): R10.84 - Generalized abdominal pain Discharge Date/Time: 04/11/20 15:14 Instructions: DI for Abdominal Pain-Adult, GERD Diet Activity Restrictions/Additional Instructions: Thank you for trusting us with your care today. As discussed, your labwork x-rays and evaluation came back well. I sent a prescription of the Protonix that helped to feel better to [facility] In the meantime, please avoid ibuprofen naproxen or other NSAIDs. Please avoid spicy foods fried foods fatty foods as this can all upset her stomach. I suggest a light diet over the next few days. Please follow-up with primary care provider in the next few days. I have given you contact information [facility] health resource recovery engineer. They can help you identify primary care provider. With come back to the emergency department for any acute concerns such as abdominal pain with fever, inability keep down food or fluids or any acute concerns Prescriptions: New pantoprazole [Protonix] 40 mg tablet,delayed release (DR/EC) 40 mg PO DAILY Qty: 14 RF: 0 No Action ibuprofen 800 mg tablet 800 mg PO TID PRN (Reason: pain) Qty: 20 RF: 0 naproxen [Naprosyn] 500 mg tablet 500 mg PO BID PRN (Reason: pain) Qty: 14 RF: 0 cyclobenzaprine 10 mg tablet 10 mg PO TID PRN (Reason: muscle spasm) Qty: 15 RF: 0 cyclobenzaprine 10 mg tablet 10 mg PO TID PRN (Reason: muscle spasm) Qty: 15 RF: 0 naproxen 500 mg tablet 500 mg PO BID PRN (Reason: pain) Qty: 14 RF: 0 prednisone 20 mg tablet 40 mg PO DAILY Qty: 10 RF: 0 Referrals: [facility] [Outside]
[2020-04-11] MEDS: MAG HYDROX/ALUMINUM/SIMETH SUS 20 ML, LIDOCAINE VISCOUS 2% 15 ML PO (14:28)
== END 2020-04-11 15:14 | disposition home or self-care (01) ==
PROVIDERS: Emergency Provider Nurse Practitioner Family
DX: R10.84 Generalized abdominal pain (principal)
CPT/HCPCS: 36415; 74022; 80053; 81003; 81025; 82150; 83690; 83735; 85025; 96361; 96374; 96375; 99284; C9113; J2405

== ENCOUNTER 2024-06-01 12:03 | Emergency (ER) | payer OTHER, MEDICAID, SELFPAY ==
[2024-06-01 12:08] VITALS: BP 134/84; PULSE 106; RESP 16; TEMP 38.3; O2SAT 98; BMI 24.0
[2024-06-01 12:29] VITALS: TEMP 38.3
[2024-06-01] MEDS: IBUPROFEN 400 MG TABLET 800 MG PO (12:29)
[2024-06-01 12:43] LABS: Bacteria Urine Many (>30); RBC Urine 0-1/HPF (0-5/HPF); Squamous Epithelial Cell Urine 1-5 /HPF (0-5/HPF); Transitional Epi Cells Urine 0-1/HPF (0-5/HPF); Urine Volume 10mL (spun); WBC Urine 30-100/HPF (0-5/HPF)
[2024-06-01 12:44] LABS: Culture Indicated Urine Specimen Cultured; Ictotest Urine Negative (Negative)
--- NOTE | 2024-06-01 12:51 | ED.GENADULT ---
HPI - General Adult General Chief complaint: Fever Stated complaint: fever, back px x 3 days Time Seen by Provider: 06/01/24 12:36 Source: patient Mode of arrival: Ambulatory History of Present Illness HPI narrative: Patient is an otherwise healthy 29-year-old female who is here for evaluation of approximately 1-1-1/2 weeks of left-sided back discomfort. A couple days ago she developed a fever. The back discomfort has been the same or potentially worsening. She denies any urinary symptoms to include frequency or urgency. No change in bowel habits. No abdominal pain. No skin changes. No chest pain. No shortness of breath. No sore throat. No sinus congestion. No headache. She was tested herself for COVID a couple times over the past couple days although which have been negative. The left-sided back discomfort is reproducible with palpation. Related Data Previous Rx's Medication Instructions Recorded ibuprofen 800 mg tablet 800 mg PO TID PRN pain #20 tabs 03/04/18 cyclobenzaprine 10 mg tablet 10 mg PO TID PRN muscle spasm #15 11/30/19 tabs naproxen 500 mg tablet (Naprosyn) 500 mg PO BID PRN pain #14 tabs 11/30/19 cyclobenzaprine 10 mg tablet 10 mg PO TID PRN muscle spasm #15 12/30/19 tabs naproxen 500 mg tablet 500 mg PO BID PRN pain #14 tabs 12/30/19 prednisone 20 mg tablet 40 mg (2 x 20 mg) PO DAILY #10 tabs 01/11/20 pantoprazole 40 mg tablet,delayed 40 mg PO DAILY #14 tabs 04/11/20 release (Protonix) sulfamethoxazole 800 1 tab PO BID 14 days #28 tabs 06/01/24 mg-trimethoprim 160 mg tablet (Bactrim DS) Allergies Allergy/AdvReac Type Severity Reaction Status Date / Time hydrogen peroxide Allergy Unknown hives Verified 01/11/20 15:39 [HYDROGEN PEROXIDE] Review of Systems Review of Systems ROS Unobtainable: All systems reviewed & are unremarkable except as noted in HPI and below Patient History Medical History (Updated 06/01/24 @ 13:57 by Anderson Ibarra DO) Healthy female Surgical History H/O wisdom tooth extraction Social History Smoking Status: Current every day smoker substance use type: marijuana Smoking Status: Current every day smoker tobacco type: cigarettes and vaping alcohol intake frequency: a few times a week Alcohol type: hard liquor Substance Use Type: marijuana Exam Initial Vital Signs Initial Vital Signs: Vital Signs Temperature 100.9 F H 06/01/24 12:08 Pulse Rate 106 H 06/01/24 12:08 Respiratory Rate 16 06/01/24 12:08 Blood Pressure 134/84 06/01/24 12:08 Pulse Oximetry 98 06/01/24 12:08 Oxygen Delivery Method Room Air 06/01/24 12:08 Const General: cooperative, comfortable and No ill appearing HENMT Head: normal to inspection and normocephalic Nose: external nose normal Resp Effort & Inspection: normal respiratory effort Auscultation: clear to auscultation bilaterally Cardio Rate: regular rate Rhythm: regular rhythm GI Inspection: normal to inspection and non-distended Palpation: soft, No firm, No guarding and No tender Back/Spine/Pelvis Back: CVA tenderness left Skin General: no rashes or lesions noted Neuro General: patient alert, patient awake, patient oriented x3 and moves all extremities Extrem General: capillary refill normal Course Orders Ordered: ED Orders 06/01/24 12:15 Ictotest Urine Stat Urine Culture Stat Urine Microscopic Stat 06/01/24 13:10 Basic Metabolic Panel Stat Complete Blood Count AUTO DIFF Stat Ondansetron HCl (Ondansetron 4 Mg/2 Ml Inj) 4 mg IV NOW PRN PRN Reason: Nausea And Vomiting Ondansetron HCl (Ondansetron 4 Mg Odt) 4 mg SL NOW PRN PRN Reason: Nausea And Vomiting Discontinued Medications Ibuprofen (Ibuprofen 400 Mg Tablet) 800 mg PO NOW ONE Stop: 06/01/24 12:18 Last Admin: 06/01/24 12:29 Dose: 800 mg Documented By: PATRICIO Trimethoprim/Sulfamethoxazole (Trimeth/Sulfa 160/800 (Ds) Tablet) 1 tab PO NOW ONE Stop: 06/01/24 13:56 Vital Signs Vital signs: Vital Signs - 8 hr 06/01/24 12:08 06/01/24 12:29 Temperature 100.9 F H 100.9 F H Pulse Rate 106 H Respiratory Rate 16 Blood Pressure 134/84 Pulse Oximetry 98 Oxygen Delivery Method Room Air Medical Decision Making Lab Data Lab results reviewed: Yes I reviewed the patient's lab results. 06/01/24 13:10 06/01/24 13:10 Labs: Lab Results 06/01/24 06/01/24 Range/Units 12:15 13:10 WBC 10.6 (4.5-11.0) X10^3/uL RBC 3.94 L (4.0-5.2) X10^6/uL Hgb 11.8 L (12.0-16.0) g/dL Hct 34.6 L (36-46) % MCV 87.8 (80-100) fL MCH 29.9 (26-34) PG MCHC 34.1 (30-36) % RDW 13.0 (11.6-14.8) % Plt Count 223 (150-400) X10^3/uL Neut % (Auto) 70.9 (50-75) % Lymph % (Auto) 15.7 L (25-40) % [place] % (Auto) 12.1 (3-14) % Eos % (Auto) 0.9 L (2-4) % Baso % (Auto) 0.4 (0-2) % Neut # (Auto) 7600 H (5700-3784) /uL Lymph # (Auto) 1700 (8601-2964) /uL [place] # (Auto) 1300 H (0-900) /uL Eos # (Auto) 100 (0-450) /uL Baso # (Auto) 0 (0-100) /uL Sodium 136 L (137-145) mmol/L Potassium 3.4 (3.4-5.1) mmol/L Chloride 100 (98-107) mmol/L Carbon Dioxide 24 (22-32) mmol/L BUN 8 (7-17) mg/dL Creatinine 0.69 (0.52-1.04) mg/dL Estimated GFR > 60 (>60) mL/min BUN/Creatinine Ratio 11.6 (6-22) Glucose 120 H (70-100) mg/dL Calcium 9.1 (8.4-10.2) mg/dL Ur Bilirubin Confirm Negative (Negative) Urine RBC 0-1/hpf D (0-5/HPF) Urine WBC 30-100/hpf H (0-5/HPF) Ur Squamous Epith Cells 1-5 /hpf (0-5/HPF) Ur Transition Epith Cell 0-1/hpf (0-5/HPF) Urine Bacteria Many (>30) H (None) Ur Culture Indicated? Specimen cultured Vol Urine Centrifuged 10ml (spun) Point of Care Testing Test Results Negative Urine Dip Bedside Urine Glucose Negative Bedside Urine Bilirubin + 1 Bedside Urine Ketone +/- 5 Urine Specific [place] 1.020 Bedside Urine Occult Blood +/- Bedside Urine pH 6 Bedside Urine Protein + 30 Bedside Urine Urobilinogen +/- 1mg Bedside Urine Nitrite - Negative Bedside Urine Leukocytes + 70 Esterase Point of care testing: Point of Care Testing Test Results Negative Urine Dip Bedside Urine Glucose Negative Bedside Urine Bilirubin + 1 Bedside Urine Ketone +/- 5 Urine Specific [place] 1.020 Bedside Urine Occult Blood +/- Bedside Urine pH 6 Bedside Urine Protein + 30 Bedside Urine Urobilinogen +/- 1mg Bedside Urine Nitrite - Negative Bedside Urine Leukocytes + 70 Esterase MDM Narrative Medical decision making narrative: Patient was nontoxic-appearing but she was febrile and tachycardic. She does have left-sided flank pain. No overt dysuria however urinalysis he was consistent with a UTI given her flank pain be concern for pyelonephritis. She was tolerating oral intake. Kidney functions unremarkable. No leukocytosis. No other source of infection is found. Clinically she does not have pneumonia. Low suspicion for meningitis. No abdominal pain which would be concerning for intra-abdominal issue such as appendicitis. She was no skin changes concerning for zoster. She also has no other URI symptoms. Will discharge home with antibiotics. Given 1st dose here in the ER. She was informed that there was a urine culture pending at the time of her discharge. She was given return precautions. She expressed understanding and agreement. Discharge Plan Departure Patient Disposition: Home Clinical Impression: Pyelonephritis Instructions: DI for Kidney Infection Activity Restrictions/Additional Instructions: Recommend that you take the antibiotics as directed until the course is completed. There was a urine culture pending at the time of your discharge and we will contact you if we need to change antibiotics based on this. You can take Tylenol for any fevers. Increase your fluid intake. Return to the emergency department for new or worsening symptoms. Prescriptions: New sulfamethoxazole-trimethoprim [Bactrim DS] 800-160 mg tablet 1 tab PO BID 14 Days Qty: 28 0RF No Action ibuprofen 800 mg tablet 800 mg PO TID PRN (Reason: pain) Qty: 20 0RF naproxen [Naprosyn] 500 mg tablet 500 mg PO BID PRN (Reason: pain) Qty: 14 0RF cyclobenzaprine 10 mg tablet 10 mg PO TID PRN (Reason: muscle spasm) Qty: 15 0RF cyclobenzaprine 10 mg tablet 10 mg PO TID PRN (Reason: muscle spasm) Qty: 15 0RF naproxen 500 mg tablet 500 mg PO BID PRN (Reason: pain) Qty: 14 0RF prednisone 20 mg tablet 40 mg PO DAILY Qty: 10 0RF pantoprazole [Protonix] 40 mg tablet,delayed release (DR/EC) 40 mg PO DAILY Qty: 14 0RF Referrals: Miscellaneous,Doctor, MD [Primary Care Provider] - Stand Alone Forms: Patient Portal/API
[2024-06-01 13:22] LABS: Add Manual Diff / Slide Review NO; Basophils Absolute Auto 0 /uL (0-100); Basophils Percent Auto 0.4 % (0-2); Eosinophils Absolute Auto 100 /uL (0-450); Eosinophils Percent Auto 0.9 % (2-4); Hematocrit 34.6 % (36-46); Hemoglobin 11.8 g/dL (12.0-16.0); Lymphocytes Absolute Auto 1700 /uL (1100-4500); Lymphocytes Percent Auto 15.7 % (25-40); Mean Corpuscular HGB Conc 34.1 % (30-36); Mean Corpuscular Hemoglobin 29.9 PG (26-34); Mean Corpuscular Volume 87.8 fL (80-100); Monocytes Absolute Auto 1300 /uL (0-900); Monocytes Percent Auto 12.1 % (3-14); Neutrophils Absolute Auto 7600 /uL (1500-7000); Neutrophils Percent Auto 70.9 % (50-75); Platelet Count 223 X10^3/uL (150-400); Red Blood Cell Count 3.94 X10^6/uL (4.0-5.2); White Blood Cell Count 10.6 X10^3/uL (4.5-11.0)
[2024-06-01 13:35] LABS: BUN Creatinine Ratio 11.6 (6-22); Blood Urea Nitrogen 8 mg/dL (7-17); Calcium 9.1 mg/dL (8.4-10.2); Carbon Dioxide 24 mmol/L (22-32); Chloride 100 mmol/L (98-107); Estimated Glomerular Filt Rate > 60 mL/min (>60); Glucose 120 mg/dL (70-100); HEMOLYSIS < 15 (0-50); Potassium 3.4 mmol/L (3.4-5.1); Sodium 136 mmol/L (137-145)
[2024-06-01] MEDS: TRIMETH/SULFA 160/800 (DS) TABLET 1 TAB PO (14:14)
[2024-06-01 14:20] VITALS: BP 112/59; PULSE 85; RESP 18; TEMP 37.1; O2SAT 97
== END 2024-06-01 14:21 | disposition home or self-care (01) ==
PROVIDERS: Emergency Provider Emergency Medicine
DX: N12 Tubulo-interstitial nephritis, not specified as acute or chronic (principal); R50.9 Fever, unspecified
CPT/HCPCS: 36415; 80048; 81003; 81015; 81025; 85025; 87077; 87086; 87186; 99283